=== PATIENT | male | born 1990 | race Caucasian/White ===

== ENCOUNTER 2017-12-05 21:59 | Emergency (ER) | payer MEDICAID, SELFPAY ==
[2017-12-05 22:00] VITALS: BP 140/85; PULSE 77; RESP 16; TEMP 36.7; O2SAT 97; BMI 32.3
[2017-12-05 22:22] VITALS: O2SAT 97
--- NOTE | 2017-12-05 22:23 | ED.DCSUM_ITS ---
- ER Visit Summary Date of Service: 12/05/17 Chief Complaint: Bad sore throat headache, aches and nonproductive cough History of Present Illness: The patient is a 27 M is a smoker 1 pack per day presents with flulike symptoms. Both of his children were diagnosed with influenza a. He does complain of headache without photophobia sips of his neck. Does complain of nasal congestion, postnasal drainage and bad sore throat. He states it hurts to swallow. He denies any chest pain or palpitations. He denies shortness of breath. He denies any GI or symptoms. He denies skin lesions. He denies swelling of his joints. Please read written note for complete detail Physical Examination: Vital signs are unremarkable and is afebrile. Head is atraumatic normocephalic. Pupils equal round reactive. TMs are pearly white with landmarks noted. Posterior pharynx without erythema noted without exudate. There is evidence of postnasal drainage. Trach is midline with no stridor. He does have bilateral anterior cervical lymphadenopathy. Heart is regular without murmur, gallop or rub. Lungs reveal wheezing throughout with increased x-ray phase. There is no egophony or increased vocal fremitus. There are no skin lesions noted. He is alert and oriented ?3 with a nonfocal neurologic exam. Test Results: None are indicated Emergency Department Course and Treatment: 6 puffs of albuterol metered-dose inhaler and dispense inhaler to be used every 2-4 hours while awake for the next 3 days. Treatment Plan: Stop smoking, Tylenol and/or ibuprofen for aches and fever and use of inhaler Disposition: Discharged home with appropriate home-going instructions Impression: 1. Influenza 2. Bronchospasm secondary #1 3. Tobacco use This note was generated with [employer] dictation software. It may contain incorrect words, spelling, and punctuation that were not noted in review of the chart prior to signing ED Disposition - Plan for ED Patient: Disposition: Home or Assisted Living Chief Complaint: Cold Sx Instructions: ED Flu Referrals: Care Physician,No Primary [Primary Care Provider] - Additional Instructions: It is in your best interest to stop smoking. 2 puffs of inhaler every 2-4 hours while awake for the next 3-5 days then every 4-6 hours as needed. If there is no improvement in 5-7 days follow-up with the physician you were assigned to by your [facility] carrier, [facility]
== END 2017-12-05 22:33 | disposition home or self-care (01) ==
PROVIDERS: Emergency Provider Emergency Medicine
DX: J11.1 Influenza due to unidentified influenza virus with other respiratory manifestations (principal); Z72.0 Tobacco use; J98.01 Acute bronchospasm
CPT/HCPCS: 99282

== ENCOUNTER 2017-12-09 12:46 | Emergency (ER) | payer MEDICAID, SELFPAY ==
[2017-12-09 12:48] VITALS: BP 132/74; PULSE 105; RESP 16; TEMP 37.1; O2SAT 96; BMI 31.8
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
[2017-12-09 15:47] VITALS: BP 137/74; PULSE 88; RESP 16; O2SAT 97
--- NOTE | 2017-12-09 15:50 | ED.RN ---
[facility] AT BEDSIDE TALKING WITH PT.
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
[2017-12-09 17:09] VITALS: BP 137/74; PULSE 88; RESP 16; O2SAT 97
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
== END 2017-12-09 17:26 ==
PROVIDERS: Emergency Provider Emergency Medicine
DX: S01.81XA Laceration without foreign body of other part of head, initial encounter (principal); S60.221A Contusion of right hand, initial encounter; Y04.2XXA Assault by strike against or bumped into by another person, initial encounter; Y93.9 Activity, unspecified; Y92.009 Unspecified place in unspecified non-institutional (private) residence as the place of occurrence of the external cause; Y99.9 Unspecified external cause status; J32.4 Chronic pansinusitis; Z72.0 Tobacco use
CPT/HCPCS: 12013; 70450; 70486; 73130; 99285

== ENCOUNTER 2017-12-10 09:56 | Emergency (ER) | payer MEDICAID, SELFPAY ==
[2017-12-10 09:56] VITALS: BP 154/95; PULSE 117; RESP 18; TEMP 36.2; O2SAT 99; BMI 31.7
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
[2017-12-10] MEDS: oxyCODONE 5 MG Tablet PO (11:15)
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
[2017-12-10 11:56] VITALS: BP 128/72; PULSE 80; RESP 17
== END 2017-12-10 12:01 | disposition home or self-care (01) ==
LOC: ED 10:27
PROVIDERS: Emergency Provider Emergency Medicine
DX: S00.83XD Contusion of other part of head, subsequent encounter (principal); S60.222D Contusion of left hand, subsequent encounter; Y09 Assault by unspecified means; Z72.0 Tobacco use
CPT/HCPCS: 73130; 99283

== ENCOUNTER 2018-10-23 19:23 | Emergency (ER) | payer MEDICAID, SELFPAY ==
[2018-10-23 19:23] VITALS: BP 144/77; PULSE 62; RESP 16; TEMP 36.4; O2SAT 99; BMI 29.8
[2018-10-23 21:00] VITALS: BP 136/70; PULSE 67; RESP 14; O2SAT 99
--- NOTE | 2018-10-23 22:18 | ED.DCSUM_ITS ---
History of Present Illness Chief Complaint: General Illness Informant: Patient Onset: Today - about 5-6 hrs prior to evaluation Context: Sudden Onset Quality: dizzy/spinning Location: head Current Severity: minimal Maximum Severity: Moderate Worsened by: unknown Relieved by: resting in waiting room in ER Associated Symptoms: felt disoriented (gone). recent diarrhea illness, resolved now. Narrative: Patient had a diarrheal illness with occasional mild cramping, no vomiting or fevers, for about 4 days this past week, he has been resolved for 2 days. He saw his doctor and was told he probably had Chancellor virus. Today he started having vertiginous symptoms which made him feel disoriented. He has had vertigo in the past as a side effect to a medication that he needs to take his stabilizer, which he is no longer on. He has been in the waiting room/ER for several hours prior to evaluation, he is appearing more pale than he is used to. He states since his diarrhea has been resolved he has been eating and drinking normally. He denies any recent head injury or earache, tinnitus, changes in his hearing. No focal neurologic symptoms appropriately. No seizures or vomiting. - Past Medical History (1) Bipolar disorder Status: Chronic Past Medical History - Allergies and Home Meds Allergies/Adverse Reactions: Allergies No Known Allergies Allergy (Verified 10/23/18 19:24) Primary Care Physician: Shavon Le PA [Primary Care Provider] - Smoking Status: Current every day smoker Review of Systems General: Reports: Malaise. Denies: Chills, Fever, Sweats Eyes: Denies: Visual changes - bilaterally, Diplopia ENT: Denies: Bilateral ear pain, Rhinorrhea, Sore throat Cardiovascular: Denies: Chest pain, Palpitations Respiratory: Denies: Dyspnea, Cough, Dyspnea on exertion Gastrointestinal: Denies: Abdominal pain, Nausea, Vomiting, Diarrhea, Melena, Hematochezia Genitourinary: Denies: Dysuria, Hematuria, Frequency Musculoskeletal: Denies: Neck pain, Back pain, Swelling, Extremity Pain Skin: Reports: - - Power. Denies: Rash, Abscess Neurological: Denies: Headache, Weakness, Numbness Psych: Reports: Anxiety - Resolved now. Denies: Depression Endocrine: Denies: Polyuria, Polydipsia Hematologic: Denies: Easy bruising, Easy bleeding Allergy: Denies: Swelling of the mouth, Swelling of the tongue Physical Exam Vital Signs/Narrative: Vital Signs Temp Pulse Resp BP Pulse Ox 10/23/18 21:00 67 14 136/70 H 99 10/23/18 19:23 97.6 F L 62 16 144/77 H 99 Inital Vital Signs reviewed: Yes General: Well nourished, Well developed Head: Normocephalic, Atraumatic Eyes: Perrl, EOMI ENT: Moist mucous membranes, No rhinorrhea, TM's clear Neck: Supple, Nontender Cardiovascular: Regular rate, Regular rhythm, No murmurs Respiratory: No distress, CTA bilaterally, Chest nontender Abdomen: Soft, Nontender, Nondistended, Normal bowel sounds Back: Nontender, Normal Inspection Extremities: Nontender, No edema Skin: Normal color, No rash Neurological: Alert, Oriented x3, Cranial nerves II-XII grossly intact, Normal Strength, Normal Sensation, Normal DTR - incl nml FTN and HTS bilat, - - Negative [place], although mild symptoms with maneuver to the left Psychological: Normal affect Diagnostic/Tx/Re-eval Laboratory Tests 10/23/18 10/23/18 Range/Units 21:02 21:02 WBC 7.8 (4.4-11.0) K/mm3 RBC 5.03 (4.6-6.2) M/mm3 Hgb 15.7 (13.0-16.5) g/dl Hct 45.4 (40-54) % MCV 90.3 (80-94) fL MCH 31.2 (27.0-32.0) pg MCHC 34.6 (32-36) g/gl RDW 13.4 (11.6-14.6) % RDW Differential 44.0 H (35.1-43.9) fl Plt Count 257 (150-450) K/mm3 MPV 9.8 (6.2-12.0) fl Immature Gran % (Auto) 0.000 (0.0-0.9) % Neut % (Auto) 62.6 (47-70) % Lymph % (Auto) 27.9 (19-41) % Morrow % (Auto) 8.2 (0-10) % Eos % (Auto) 0.9 (0-5) % Baso % (Auto) 0.4 (0-1) % Absolute Neuts (auto) 4.9 (2.0-7.7) X10^3/uL Absolute Lymphs (auto) 2.18 (0.83-4.51) X10^3/ul Total Counted Not Reportable Sodium 142 (136-145) mmol/L Potassium 4.0 (3.5-5.1) mmol/L Chloride 109 H (98-107) mmol/L Carbon Dioxide 28.0 (21.0-32.0) mmol/L Anion Gap 5 (5-15) BUN 10 (7-18) mg/dL Creatinine 0.98 (0.70-1.30) mg/dL Estim Creat Clear Calc 111.22 ml/min Est GFR (MDRD) Af Amer 117 (>60) mL/min Est GFR (MDRD) Non-Af 97 (>60) mL/min BUN/Creatinine Ratio 10.3 (10-20) RATIO Glucose 93 (74-106) mg/dL Calcium 8.6 (8.5-10.1) mg/dL - Medical Decision Making Labs are reassuring, and were performed because of his systemic symptoms. His disorientation resolved with his vertigo and I suspect it was directly related, and I do not think he requires a head scan. I think this is peripheral vertigo, probably reactive as a result of his recent viral infection. Supportive care advised. He was given meclizine here as well as a prescription and advised to follow-up if his symptoms last more than a week and he is comfortable with this plan. ED Disposition - Plan for ED Patient: Disposition: Home or Assisted Living Chief Complaint: General Illness Diagnosis: Peripheral vertigo, unspecified Instructions: ED Vertigo Unspecified Prescriptions: Meclizine HCl 25 mg PO Q8H PRN #16 tablet PRN Reason: Vertigo Referrals: Shavon Le PA [Primary Care Provider] - 1 Week if not improving
[2018-10-23 22:23] LABS: Absolute Lymphocyte Count 2.18 X10^3/ul (0.83-4.51); Absolute Neutrophil Count 4.9 X10^3/uL (2.0-7.7); Basophil# 0.03 X10^3/uL; Basophil% 0.4 % (0-1); Eosinophil# 0.07 X10^3/uL; Eosinophils% 0.9 % (0-5); Hematocrit 45.4 % (40-54); Hemoglobin 15.7 g/dl (13.0-16.5); Lymphocyte # 2.18 X10^3/ul (4.0); Lymphocyte % 27.9 % (19-41); Mean Corp Hgb Conc 34.6 g/gl (32-36); Mean Corpuscular Hgb 31.2 pg (27.0-32.0); Mean Corpuscular Volume 90.3 fL (80-94); Mean Platelet Vol. 9.8 fl (6.2-12.0); Monocyte# 0.64 X10^3/uL; Monocyte% 8.2 % (0-10); Neutrophil % 62.6 % (47-70); Platelet Count 257 K/mm3 (150-450); RBC Distribution Width CV 13.4 % (11.6-14.6); Red Blood Count 5.03 M/mm3 (4.6-6.2); White Blood Count 7.8 K/mm3 (4.4-11.0)
[2018-10-23 22:26] LABS: POSITIVE COUNT NO; POSITIVE DIFFERENTIAL NO; POSITIVE MORPHOLOGY NO
[2018-10-23 22:32] LABS: Anion Gap 5 (5-15); BUN 10 mg/dL (7-18); BUN/Creat Ratio 10.3 RATIO (10-20); Calcium,Total 8.6 mg/dL (8.5-10.1); Chloride 109 mmol/L (98-107); Creatinine, Serum 0.98 mg/dL (0.70-1.30); EST Glomerular Filtration Rate 97 mL/min (>60); Est Glom Filt Rate - Afr Amer 117 mL/min (>60); Estimated Creatinine Clearance 111.22 ml/min; Glucose 93 mg/dL (74-106); Sodium Level 142 mmol/L (136-145)
[2018-10-23] MEDS: Meclizine HCl 25 MG Tablet PO (22:33)
== END 2018-10-23 22:59 | disposition home or self-care (01) ==
PROVIDERS: Emergency Provider Emergency Medicine; Family Provider Physician Assistant; PCP Physician Assistant
DX: H81.399 Other peripheral vertigo, unspecified ear (principal); F17.200 Nicotine dependence, unspecified, uncomplicated; F31.9 Bipolar disorder, unspecified
CPT/HCPCS: 80048; 85025; 99284; A4216

== ENCOUNTER 2018-12-07 00:56 | Emergency (ER) | payer MEDICAID, SELFPAY ==
[2018-12-07 00:57] VITALS: BP 162/95; PULSE 71; RESP 18; TEMP 37; O2SAT 97; BMI 31.6
--- NOTE | 2018-12-07 02:59 | ED.DEP ---
ED Disposition - Plan for ED Patient: Instructions: ED Drug Abuse General Referrals: Shavon Le PA [Primary Care Provider] - EIGHTY,ONE [STAFF PHYSICIAN] -
[2018-12-07 03:10] VITALS: BP 150/78; PULSE 102
--- NOTE | 2018-12-07 03:10 | ED.RN ---
behavioral health services business card given. mom inquired about sedative to help pt sleep. spoke with dr. milner, he suggested benadryl that mom has at home, take 2. mom aware that pts hyperactivity will get better when meth gets out of his system.
--- NOTE | 2018-12-07 06:57 | ED.VISSUMM ---
- ER Visit Summary Date of Service: 12/07/18 Chief Complaint: Hallucinations History of Present Illness: The patient is a 28 M who presents with paranoia. Patient admits to methamphetamine use. His mother was concerned because he was delusional and he was hearing nets outside and thought that there are cameras in the house and he is being watched. He continued to have these delusions and paranoia of being watched by cameras on the way here to the emergency department. He denies any suicidal or homicidal ideation. Currently he is improved and essentially has no complaints. Physical Examination: Afebrile blood pressure 162/95 vitals otherwise normal Moist mucous membranes Heart regular rate and rhythm Lungs clear Abdomen soft Alert and oriented with no focal or lateralizing neurological deficits Normal affect normal behavior Test Results: Not indicated Emergency Department Course and Treatment: I believe the patient's paranoia is related to methamphetamine abuse. He is not suicidal he is not homicidal he does not appear to be a risk to himself at this time. He was counseled on drug cessation and discharged home. Treatment Plan: [] Disposition: Discharge Impression: Methamphetamine abuse This note was generated with [employer] dictation software. It may contain incorrect words, spelling, and punctuation that were not noted in review of the chart prior to signing ED Disposition - Plan for ED Patient: Disposition: Home or Assisted Living Instructions: ED Drug Abuse General Referrals: EIGHTY,ONE [STAFF PHYSICIAN] - Shavon Le PA [Primary Care Provider] -
== END 2018-12-07 03:11 | disposition home or self-care (01) ==
PROVIDERS: Emergency Provider Emergency Medicine; Family Provider Physician Assistant; PCP Physician Assistant
DX: F15.10 Other stimulant abuse, uncomplicated (principal); F31.9 Bipolar disorder, unspecified
CPT/HCPCS: 99282

== ENCOUNTER 2018-12-08 04:00 | Emergency (ER) | payer MEDICAID, SELFPAY ==
[2018-12-07 00:57] VITALS: BMI 31.6
[2018-12-08 04:02] VITALS: BP 133/88; PULSE 130; RESP 20; TEMP 36.7; O2SAT 97; BMI 29.2
--- NOTE | 2018-12-08 05:20 | EKG12_ITS ---
Test Reason : PALPITATIONS Blood Pressure : / mmHG Vent. Rate : 085 BPM Atrial Rate : 085 BPM P-R Int : 138 ms QRS Dur : 088 ms QT Int : 356 ms P-R-T Axes : 069 070 051 degrees QTc Int : 423 ms Normal sinus rhythm Nonspecific T wave abnormality Abnormal ECG Confirmed by SARAH BARAJAS, SOCO ([id number]), production editor MARA TIPTON ([id number]) on 12/13/2018 11:19:35 AM Referred By: ASIYA Confirmed By:SOCO SMITH MD
[2018-12-08] MEDS: LORazepam 1 MG Tablet 2 MG PO (05:56)
[2018-12-08 06:17] LABS: Absolute Neutrophil Count 5.8 X10^3/uL (2.0-7.7); Basophil# 0.05 X10^3/uL; Basophil% 0.6 % (0-1); Eosinophil# 0.09 X10^3/uL; Eosinophils% 1.1 % (0-5); Hematocrit 46.6 % (40-54); Hemoglobin 16.8 g/dl (13.0-16.5); Lymphocyte % 18.1 % (19-41); Mean Corp Hgb Conc 36.1 g/gl (32-36); Mean Corpuscular Hgb 31.8 pg (27.0-32.0); Mean Corpuscular Volume 88.3 fL (80-94); Monocyte# 0.82 X10^3/uL; Monocyte% 9.9 % (0-10); Neutrophil # 5.79 X10^3/uL (2.7-7.7); Neutrophil % 70.1 % (47-70); POSITIVE COUNT NO; POSITIVE DIFFERENTIAL NO; POSITIVE MORPHOLOGY NO; Platelet Count 223 K/mm3 (150-450); RBC Distribution Width CV 12.6 % (11.6-14.6); RBC Distribution Width SD 40.5 fl (35.1-43.9); Red Blood Count 5.28 M/mm3 (4.6-6.2); White Blood Count 8.3 K/mm3 (4.4-11.0)
[2018-12-08 06:30] LABS: BUN 14 mg/dL (7-18); Creatinine, Serum 0.96 mg/dL (0.70-1.30); EST Glomerular Filtration Rate 99 mL/min (>60); Estimated Creatinine Clearance 113.54 ml/min; Glucose 106 mg/dL (74-106)
[2018-12-08 06:31] LABS: ALB/GLOB Ratio 1.2 RATIO (0.9-2.4); AST(SGOT) 17 U/L (15-37); Alanine Aminotransfer ALT/SGPT 34 U/L (16-61); Albumin, Serum 4.2 g/dL (3.2-5.0); Alkaline Phosphatase 71 U/L (45-117); Anion Gap 9 (5-15); BUN/Creat Ratio 14.6 RATIO (10-20); Calcium,Total 9.6 mg/dL (8.5-10.1); Chloride 110 mmol/L (98-107); Est Glom Filt Rate - Afr Amer 119 mL/min (>60); Globulin 3.5 g/dL (2.2-4.2); Potassium 3.6 mmol/L (3.5-5.1); Protein, Total 7.7 g/dL (6.4-8.2); Sodium Level 144 mmol/L (136-145)
[2018-12-08 06:56] VITALS: BP 121/85; PULSE 112; O2SAT 96
--- NOTE | 2018-12-08 08:24 | ED.VISSUMM ---
- ER Visit Summary Date of Service: 12/08/18 Chief Complaint: Indent and skull History of Present Illness: The patient is a 28 M who presents with a concern for a dent in his skull. I recently saw him for methamphetamine abuse and paranoia and delusions. However at that point he did not seem to be a risk to himself and symptoms had improved prior to the time of my evaluation. He was discharged with his mother. Today he states about an hour or 2 before presentation he had an indent in his skull which then filled in his hands and face went numb. He complains of anxiety. He states he feels like only two of the 4 chambers in my heart are working. No nausea vomiting diarrhea. He states he does feel short of breath but this may be related to anxiety. No chest pain. Physical Examination: Initial heart rate 130 Moist mucous membranes Heart regular rhythm tachycardia Lungs clear Abdomen soft Alert Test Results: CBC, CMP normal. Alcohol negative. Emergency Department Course and Treatment: At the time of initial exam patient was calm and cooperative. I began medical clearance workup. My plan was to have crisis evaluate for possible admission. The patient became increasingly agitated and delusional and psychotic. I entered the room to speak to him about plan. He was agitated and aggressive. He was making statements such as this is Mannie's fall.Me if I knew Mannie. He states that he does not want to provide a urine specimen because he already knows what he used and he does not want family members to get his records and see that he was using drugs. Mother is concerned about his ability to care for himself. I do feel he will require psychiatric hospitalization given his worsening psychosis. Patient then eloped from his room. He did not walk by the front sight attacher. We are uncertain of where he went. We have contacted security and police. I have ordered intramuscular Geodon. I wrote a pink slip, placed patient on involuntary psychiatric hold. Patient has been signed out to the oncoming physician and police are here as well to try to locate the patient. Treatment Plan: [] Disposition: Transfer pending crisis evaluation Impression: Psychosis This note was generated with [employer] dictation software. It may contain incorrect words, spelling, and punctuation that were not noted in review of the chart prior to signing ED Disposition - Plan for ED Patient: Referrals: Shavon Le PA [Primary Care Provider] -
--- NOTE | 2018-12-08 08:28 | ED.DCSUM_ITS ---
- ER Visit Summary Date of Service: 12/08/18 Chief Complaint: Indent and skull History of Present Illness: The patient is a 28 M who presents with a concern for a dent in his skull. I recently saw him for methamphetamine abuse and paranoia and delusions. However at that point he did not seem to be a risk to himself and symptoms had improved prior to the time of my evaluation. He was discharged with his mother. Today he states about an hour or 2 before presentation he had an indent in his skull which then filled in his hands and face went numb. He complains of anxiety. He states he feels like only two of the 4 chambers in my heart are working. No nausea vomiting diarrhea. He states he does feel short of breath but this may be related to anxiety. No chest pain. Physical Examination: Initial heart rate 130 Moist mucous membranes Heart regular rhythm tachycardia Lungs clear Abdomen soft Alert Test Results: CBC, CMP normal. Alcohol negative. Emergency Department Course and Treatment: At the time of initial exam patient was calm and cooperative. I began medical clearance workup. My plan was to have crisis evaluate for possible admission. The patient became increasingly agitated and delusional and psychotic. I entered the room to speak to him about plan. He was agitated and aggressive. He was making statements such as this is Mannie's fall.Me if I knew Mannie. He states that he does not want to provide a urine specimen because he already knows what he used and he does not want family members to get his records and see that he was using drugs. Mother is concerned about his ability to care for himself. I do feel he will require psychiatric hospitalization given his worsening psychosis. Patient then eloped from his room. He did not walk by the desk interviewer. We are uncertain of where he went. We have contacted security and police. I have ordered intramuscular Geodon. I wrote a pink slip, placed patient on involuntary psychiatric hold. Patient has been signed out to the oncoming physician and police are here as well to try to locate the patient. Treatment Plan: [] Disposition: Transfer pending crisis evaluation Impression: Psychosis This note was generated with [employer] dictation software. It may contain incorrect words, spelling, and punctuation that were not noted in review of the chart prior to signing ED Disposition - Plan for ED Patient: Referrals: Shavon Le PA [Primary Care Provider] -
--- NOTE | 2018-12-08 08:39 | ED.RN ---
PT WAS BECOMING INCREASINGLY AGITATED AND PARANOID. RN SPOKE WITH DR. BRADEN, WHO INSTRUCTED RN THAT PT WILL BE PINK SLIPPED FOR HIS PARANOIA. DR. BRADEN WENT IN TO TALK WITH PT AROUND 0810, PT LEFT DEPARTMENT AT 0814, RN CALLED [place] [employer] DISPATCHER AT 0817 TO REPORT THAT THE PT LEFT DEPARTMENT. HOSPITAL SECURITY NOTIFIED, 0837: HOSPITAL PAGE FOR [facility]: MISSING ADULT
--- NOTE | 2018-12-08 09:23 | NURSING ---
CALLED THE [facility]SELING [facility]. JOSE AGARWAL IS DISCUSSING PATIENT WITH DR WEBSTER
[2018-12-08 10:08] LABS: Amphetamine Urine VISTA POSITIVE (<1000 ng/mL); Barbiturate Urine VISTA NEGATIVE (< 200 ng/mL); Benzodiazepine Urine VISTA NEGATIVE (< 200 ng/mL); Cocaine Urine VISTA NEGATIVE (< 300 ng/mL); Ecstacy Urine VISTA POSITIVE (< 500 ng/mL); Methadone Urine VISTA NEGATIVE (< 300 ng/mL); PCP Urine VISTA NEGATIVE (< 25 ng/mL); THC Urine VISTA POSITIVE (< 50 ng/mL); Vista UDS pH Range 6
[2018-12-08 11:10] VITALS: RESP 18
--- NOTE | 2018-12-08 11:17 | CM.ED ---
SOCIAL WORK NOTE UPDATED BY NURSE, PT TO BE EVALUATED BY CRISIS. PT WITH MANIC BEHAVIORS. DISPOSITION PENDING CRISIS EVALUATION. MARA WATKINS, INSIDE TESTER, LIBRARY CUSTOMER SERVICE CLERK.
--- NOTE | 2018-12-08 12:27 | ED.DEP ---
ED Disposition - Plan for ED Patient: Instructions: ED Drug Abuse General Prescriptions: hydrOXYzine pamoate capsule [Vistaril] 25 mg PO TID PRN PRN #15 cap PRN Reason: Anxiety Additional Instructions: follow up as instructed by crisis counselor
[2018-12-08] MEDS: hydrOXYzine PAM 25 MG Capsule PO (12:33)
== END 2018-12-08 12:36 | disposition home or self-care (01) ==
PROVIDERS: Emergency Medicine; Emergency Provider Emergency Medicine; Family Provider Physician Assistant; PCP Physician Assistant
DX: F29 Unspecified psychosis not due to a substance or known physiological condition (principal); F41.9 Anxiety disorder, unspecified; F15.90 Other stimulant use, unspecified, uncomplicated
CPT/HCPCS: 80053; 80307; 80320; 85025; 93005; 99282; G0480

== ENCOUNTER 2018-12-08 21:55 | Emergency (ER) | payer MEDICAID, SELFPAY ==
[2018-12-08 04:02] VITALS: BMI 29.2
[2018-12-08 21:56] VITALS: BP 141/71; PULSE 123; RESP 18; TEMP 36.6; O2SAT 95; BMI 29.2
--- NOTE | 2018-12-08 22:29 | ED.VISSUMM ---
- ER Visit Summary Date of Service: 12/08/18 Chief Complaint: Mental health evaluation History of Present Illness: The patient is a 28 M who presents with paranoid ideations that became worse tonight. Patient states that there are cameras in the cruise and bolts in his mother's house. Patient believes that he is being monitored while he is there. Patient denies any suicidal or homicidal ideations. Patient became agitated after getting into an argument with his mother. Patient was seen here this morning and was given a prescription for Vistaril which he did not fill. Physical Examination: Vital signs are stable. Patient is afebrile. Patient is in no acute distress. Oral mucosa is pink and moist. Neck is supple. Trachea is midline. There is no JVD noted. Heart was regular rate and rhythm. Lungs are clear and equal bilateral. Abdomen is soft. Bowel sounds are normal. There is no tenderness. There is no guarding noted. Skin is warm dry. Cranial nerves II through XII are intact. There are no focal motor or sensory deficits noted. The remaining physical exam is within normal limits. Test Results: Patient had labs drawn this morning at his prior visit which were normal except for the tox screen which was positive for amphetamines, methamphetamines, and cannabinoids. Emergency Department Course and Treatment: [facility] department filled out a pink slip. Crisis was contacted and will evaluate the patient. Given the patient is delusional some paranoid ideations, I feel the patient would benefit from inpatient treatment. I discussed the case with the crisis counselor. Crisis counselor will try to arrange for admission. Disposition: Likely transfer to psychiatric facility Impression: Paranoid ideations This note was generated with [employer] dictation software. It may contain incorrect words, spelling, and punctuation that were not noted in review of the chart prior to signing Capacity - Capacity Assessment Tool Can the patient make a choice & communicate that choice?: Yes Can the patient understand benefits, risks and alternatives?: Yes Can the patient make a logical, rational choice?: No Is there an impending, emergent risk to the patient?: No ED Disposition - Plan for ED Patient: Disposition: Psychiatric Hospital or Unit Diagnosis: Paranoid ideation Referrals: Shavon Le PA [Primary Care Provider] -
--- NOTE | 2018-12-08 22:30 | ED.RN ---
DR VANG REQUESTING [facility]SELING [facility] BE CONTACT FOR THE PT. COUNSELOR CONTACTED TO COME SPEAK WITH THE PT
--- NOTE | 2018-12-08 23:34 | ED.RN ---
KHUSHI FROM CRISIS AT THE BEDSIDE.
[2018-12-08 23:35] VITALS: RESP 16
[2018-12-09] VITALS (9 sets, daily range): BP systolic 128–132; BP diastolic 64–75; PULSE 87–99; RESP 14–20; TEMP 36.6; O2SAT 96–99
--- NOTE | 2018-12-09 00:10 | ED.RN ---
THIS NURSE IN THE ROOM WITH THE COUNSELOR AND DR PERKINS SPEAKING WITH THE PT ABOUT THE NEED TO BE TRANSFERRED TO ANOTHER FACILITY FOR A PSYCHIATRIC EVALUATION. PT ARGUMENTATIVE DURING CONVERSATION. PT DOES AGREE TO TAKE LISDON IM TO HELP HIM RELAX.
[2018-12-09] MEDS: Ziprasidone IM 20 MG/ML VIAL IM (00:19)
--- NOTE | 2018-12-09 00:34 | ED.RN ---
PT REQUESTING TO GO OUTSIDE TO SMOKE. PT INFORMED THIS IS A NON-SMOKING CAMPUS. PT OFFERED A NICOTINE PATCH
[2018-12-09 01:19] LABS: Amphetamine Urine VISTA POSITIVE (<1000 ng/mL); Barbiturate Urine VISTA NEGATIVE (< 200 ng/mL); Benzodiazepine Urine VISTA NEGATIVE (< 200 ng/mL); Cocaine Urine VISTA NEGATIVE (< 300 ng/mL); Ecstacy Urine VISTA POSITIVE (< 500 ng/mL); Methadone Urine VISTA NEGATIVE (< 300 ng/mL); PCP Urine VISTA NEGATIVE (< 25 ng/mL); THC Urine VISTA POSITIVE (< 50 ng/mL); Vista UDS pH Range 5
--- NOTE | 2018-12-09 01:49 | NURSING ---
ACCEPTED AT [facility] [phone] REPORT GOING TO INTENSIVE CARE UNIT
--- NOTE | 2018-12-09 03:38 | NURSING ---
JOHNATHAN FITZPATRICKIT DOES NOT DO NIGHT TRANSPORT TO [facility] CARE SAID TO CALL AFTER SHIFT CHANGE TO SET UP A RIDE
--- NOTE | 2018-12-09 04:53 | ED.RN ---
PT PRESENTLY SLEEPING,AROUSED BRIEFLY FOR VITALS AND THEN ROLLED OVER TO SLEEP.
== END 2018-12-09 09:51 ==
LOC: ED 23:40
PROVIDERS: Emergency Medicine; Emergency Provider Emergency Medicine; Family Provider Physician Assistant; PCP Physician Assistant
DX: F22 Delusional disorders (principal); F17.200 Nicotine dependence, unspecified, uncomplicated
CPT/HCPCS: 80053; 80307; 80320; 85025; 93005; 96372; 99282; 99284; G0480; J3486

== ENCOUNTER 2018-12-28 01:47 | Emergency (ER) | payer MEDICAID, SELFPAY ==
[2018-12-28 01:47] VITALS: BP 124/75; PULSE 93; RESP 16; TEMP 36.6; O2SAT 98; BMI 31.5
--- NOTE | 2018-12-28 01:58 | CT_ITS ---
STUDY: CT BRAIN WITHOUT CONTRAST REASON FOR EXAM: Male, 28 years old. Injury. Status post trip and fall, hitting head on a door. Laceration to middle of forehead. RADIATION DOSAGE (If Supplied By Facility): CTDIvol = ( 44.99 ) mGy, DLP = ( 812.98 ) mGycm TECHNIQUE: Transaxial CT imaging of the brain was performed without administration of intravenous contrast material. Individualized dose optimization techniques were used for this CT. COMPARISON: 12/09/2017 FINDINGS: Normal soft tissue structures. Normal calvarium. There is an old blowout fracture of the medial wall left orbit. Normal size ventricles and extra-axial spaces for the patient's age. Normal white matter tracts of the cerebral hemispheres. Normal basal ganglia and thalami. Normal brainstem. Normal cerebellum. There is no intracranial hemorrhage. There are no findings of an acute ischemic infarction. Normal visualized paranasal sinuses. CT/Brain/Head without Contrast IMPRESSION: Normal unenhanced CT scan of the brain. Electronically Signed: Jesse Best MD at 3:09 EST , Service support ,
--- NOTE | 2018-12-28 02:01 | ED.DCSUM_ITS ---
- ER Visit Summary Date of Service: 12/28/18 Chief Complaint: Facial laceration History of Present Illness: The patient is a 28 M mechanical fall 1 hour prior to arrival. Reports frequent alcohol his mother's house, he tripped hitting the wall. Denies loss of conscious. No headache, no nausea or vomiting. No visual changes. Tetanus 2007. Stitches in the past. No neck or back pain. Physical Examination: General: Alert and oriented ?3, no acute distress HEENT: Normocephalic, 3 cm horizontal laceration mid forehead, minimal bleeding, controlled with pressure. No hemotympanum. Moist mucosa membranes Neck: supple, nontender. Cardiovascular: Regular rate and rhythm, no murmurs Respiratory: Normal breath sounds, symmetric, no distress Abdomen: Soft, nontender, nondistended Extremities: Nontender, no edema, pulses intact ?4 Neuro: no focal neurological deficits. Test Results: CT head: No acute process. Emergency Department Course and Treatment: Patient no focal neurologic deficits. Due to alcohol use, CT head obtained shows no acute process. Laceration. Total of 7, 6-0 nylon sutures. Tetanus updated. Follow-up in 5 days for suture removal. Discharged with sober ride Treatment Plan: [] Disposition: Discharge Impression: 1. Closed head injury 2. Facial laceration 3. Alcohol use. 4. Tetanus update This note was generated with [employer] dictation software. It may contain incorrect words, spelling, and punctuation that were not noted in review of the chart prior to signing ED Disposition - Plan for ED Patient: Disposition: Home or Assisted Living Diagnosis: Closed head injury, Facial laceration, Alcohol use, Tetanus toxoid vaccination administered at current visit Instructions: ED Head Injury Closed, ED Laceration Facial Sutr Tape Referrals: Shavon Le PA [Primary Care Provider] - 5 Days for suture removal
[2018-12-28] MEDS: Diphth,Pertuss(Acell),Tet Vac 0.5 ML Vial IM (02:25)
[2018-12-28 03:27] VITALS: BP 116/80; PULSE 75; RESP 16; O2SAT 100
--- NOTE | 2018-12-28 03:28 | ED.RN ---
PT gave me permission to call mom for ride home. She stated she would be there but she lives a bit away.
--- NOTE | 2018-12-28 04:19 | ED.RN ---
Mom presents to bedside. PT wakes up and ambulates to lobby with a steady and independent gait. Mom would like a work slip for pt as he needs to be at work at 0500. Dr. Bah wrote for the pt to be off for today only.
== END 2018-12-28 04:20 | disposition home or self-care (01) ==
PROVIDERS: Emergency Provider Emergency Medicine; Family Provider Physician Assistant; PCP Physician Assistant
DX: S09.90XA Unspecified injury of head, initial encounter (principal); S01.81XA Laceration without foreign body of other part of head, initial encounter; W01.198A Fall on same level from slipping, tripping and stumbling with subsequent striking against other object, initial encounter; Y93.9 Activity, unspecified; Y92.009 Unspecified place in unspecified non-institutional (private) residence as the place of occurrence of the external cause; Y99.9 Unspecified external cause status; Z72.89 Other problems related to lifestyle; Z23 Encounter for immunization; Z72.0 Tobacco use; F31.9 Bipolar disorder, unspecified
CPT/HCPCS: 12013; 70450; 90471; 90715; 99285

== ENCOUNTER → 2020-04-12 11:52 | Outpatient (CLI) | payer SELFPAY | LOC: MTDU 11:52 | PROVIDERS: PCP Physician Assistant; Visit Provider Family Medicine | DX: Z20.828 Contact with and (suspected) exposure to other viral communicable diseases (principal) | CPT/HCPCS: 87635; G2023; U0003 ==

== ENCOUNTER 2023-11-07 02:36 | Emergency (ER) | payer SELFPAY ==
[2023-11-07 02:37] VITALS: BP 157/85; PULSE 111; RESP 20; TEMP 36.4; O2SAT 97; BMI 28.1
[2023-11-07] MEDS: 0.9% Normal Saline (1000mL) 1,000 ML 999 ML IV (03:02)
--- NOTE | 2023-11-07 03:21 | EDS_ITS ---
HPI HPI - Psych History of Present Illness Chief Complaint: Overdose Narrative Narrative: 33-year-old male brought in for evaluation of abnormal behavior. Patient admits to doing ecstasy tonight. He states he went in to [place] and hung out with some friends and he did not do ecstasy until he came home. He states that he called his mother and said he was not feeling right. Mother states he has a history of drug abuse and she believes he is doing methamphetamine again as she remembers the symptoms from previous. He does again admit to ecstasy use. Denies other drugs. Mother states he might of been awake for the last 2 days and he has a history of bipolar disorder and PTSD. Is been previously admitted for these symptoms in the past. She states has been put on medications but he does not stay on them. Patient is not suicidal or homicidal. Mother states that previously after he had these issues he was able to get cleaned up and he went to [place] and graduated from school by degree but then later felt back into the wrong crowd and started doing drugs. [facility] Medical History Bipolar disorder Manic behavior Home Medications hydroxyzine pamoate 25 mg capsule 25 mg PO TID PRN PRN Anxiety #15 caps 12/08/18 [Rx Last Taken Unknown] olanzapine 5 mg tablet (Zyprexa) 5 mg PO DAILY 12/28/18 [History Last Taken Unknown] Allergy/AdvReac Type Severity Reaction Status Date / Time No Known Allergies Allergy Verified 11/07/23 02:37 Social History Smoking Status: Current every day smoker tobacco type: cigarettes ROS ROS ED Constitutional Constitutional ED: Denies chills, fever(s) or sweats Eyes Eyes: Denies blurry vision or change in vision ENT ENT ED: Denies ear pain or sore throat Cardiovascular Cardiovascular: Denies chest pain, palpitations or racing heartbeat Respiratory/Chest Respiratory/Chest: Denies cough, dyspnea or sputum Gastrointestinal Gastrointestinal: Denies abdominal pain, constipation, diarrhea, nausea or vomiting Genitourinary Genitourinary ED: Denies dysuria, hematuria or urinary frequency Musculoskeletal Musculoskeletal: Denies arthralgias, myalgias or neck pain Integumentary Denies abscess, Abrasions or rash Neurologic Neurologic: Denies headache(s), paresthesias or weakness Psychiatric Psychiatric: Denies anxiety, depression, suicidal ideation or suicidal thoughts Endocrine Endocrinology: Denies polydipsia or polyuria EXAM Physical Exam Const Vital Signs: 11/07/23 02:37 11/07/23 06:53 Temperature 97.6 F L Temperature Source Temporal Pulse Rate 111 H 105 H Respiratory Rate 20 H 21 H Blood Pressure 157/85 H 126/79 H Blood Pressure Mean 109 94 Pulse Ox 97 98 Positive well nourished and unkempt Constitutional Narrative: Confused, shaky General Appearance ED: unkempt and irritable; Negative for pallor HEENT Reports moist mucous membranes Eyes PERRL and EOMs intact bilaterally Resp normal respiratory effort and clear to auscultation bilaterally Auscultation: Negative for rales, rhonchi or wheezes Cardio Rate: tachycardic Rhythm: regular rhythm GI non-tender and non-distended Neuro CN's II-XII intact bilaterally [place] Coma Scale: document GCS findings Spontaneous Obeys Commands Oriented 15 Sensorium / Orientation: alert Psych denies hallucinations, denies homicidal ideation and denies suicidal ideation Appearance: unkempt and bizarre Attitude: agitated Activity / Motor Behavior: psychomotor agitation, fidgetting, disorganized and restless Mood & Affect: irritable Thought Process: circumstantial, confused and illogical Thought Content: No suicidality and No homicidality Attention / Concentration: attention grossly impaired and concentration grossly impaired Memory / Cognition: memory grossly impaired and cognition grossly impaired Insight: poor Judgement: poor Skin General Skin Exam: Negative for jaundice or pallor MDM MDM MDM Narrative Medical decision making narrative: Presenting with family for delirium/psychosis. Patient has been doing drugs and admits to doing ecstasy however his mother suspects that he has been doing methamphetamine again. He denies alcohol abuse tonight. Differential includes, drug-induced psychosis, delirium, dehydration, anemia, electrolyte abnormaliti es. Rates pain up workup was obtained for medical clearance. Will talk to crisis about the patient as mother thinks he needs inpatient care secondary to psychosis. CBC shows normal white blood cell count at 8.0. Hemoglobin stable at 13.2. Platelets are normal at 252. LFTs are normal. Renal function electrolytes within normal limits. EtOH negative. Urine drug screen positive for amphetamines and MDMA which is consistent with the mom's history that he is likely taking methamphetamine and his admission to using ecstasy. Patient has been monitored here. Still awaiting crisis to come see him as he is medically cleared family is concerned that he needs placement. Crisis counselor came to see the patient and by this time he is pretty clear and lucid. He is alert and oriented x 3 and he does not believe he needs placement. He was given outpatient resources for drug addiction and for psychiatric follow-up. He does see ALMA Olmstead for his psychiatric medications and he states he does receive these. Patient reevaluated at 0 700 a.m. and we discussed the case with the forensic social worker in the room. Patient is going to try to abstain from drug use. He does not need to be admitted for placement. Again resources were given. Patient discharged into the care of his mother. Impression: 1. MDMA abuse 2. Methamphetamine abuse Lab Data Attestation: I reviewed the patient's lab results. Labs: Laboratory Results - last 24 hr 11/07/23 11/07/23 02:46 03:32 WBC 8.0 RBC 4.43 L Hgb 13.2 Hct 38.6 L MCV 87.1 MCH 29.8 MCHC 34.2 RDW Std Deviation 39.6 RDW Coeff of Chay 12.4 Plt Count 252 MPV 10.0 Immature Gran % (Auto) 0.300 Neut % (Auto) 78.2 H Lymph % (Auto) 12.8 L [place] % (Auto) 7.8 Eos % (Auto) 0.4 Baso % (Auto) 0.5 Absolute Neuts (auto) 6.2 Absolute Lymphs (auto) 1.02 Nucleated RBC % 0 Sodium 140 Potassium 3.5 Chloride 107 Carbon Dioxide 27.0 Anion Gap 6 BUN 12 Creatinine 0.98 Estim Creat Clear Calc 112.19 Est GFR (MDRD) Af Amer 113 Est GFR (MDRD) Non-Af 93 BUN/Creatinine Ratio 12.3 Glucose 98 Calcium 8.8 Total Bilirubin 0.70 AST 19 ALT 20 Alkaline Phosphatase 59 Total Protein 6.7 Albumin 3.7 Globulin 3.0 Albumin/Globulin Ratio 1.2 Urine Opiates Screen NEGATIVE Urine Methadone Screen NEGATIVE Ur Barbiturates Screen NEGATIVE Ur Phencyclidine Scrn NEGATIVE Ur Amphetamines Screen POSITIVE H MDMA (Ecstasy) Screen POSITIVE H U Benzodiazepines Scrn NEGATIVE Urine Cocaine Screen NEGATIVE U Cannabinoids Screen NEGATIVE Ur Drug Screen Comment Ethyl Alcohol < 3.0 Discharge Plan Triage Chief Complaint: Overdose ED Provider: Brennen Frias Dx/Rx/DC Orders Instructions: ED Drug Abuse Prescriptions: No Action hydroxyzine pamoate 25 MG capsule 25 mg PO TID PRN PRN (Reason: Anxiety) Qty: 15 0RF olanzapine [Zyprexa] 5 MG tablet 5 mg PO DAILY Primary Care Provider: Shavon Le Referrals: Shavon Le, PA [Primary Care Provider] - Activity Restrictions/Additional Instructions: You have been seen and evaluated by the crisis counselor today. They recommended outpatient follow-up for both drug addiction and for mental health. Make sure that you see your PA Truong Le for your psychiatric medications. The crisis counselor also gave you some resources on outpatient psychiatric treatment as well as resources outpatient which can help you with drug addiction. Disposition Disposition: Home, Self Care
--- OUTSIDE RECORDS SUMMARY | 2023-11-07 03:23 | XMS RPT_ITS | CCD ---
Author Name Unknown Address [address] [place] [address] Organization [facility] Care Team Providers Care Assistant Center Manager Name Role Phone ALEXIS GRIFFIN Admitting Unavailable ALEXIS GRIFFIN Attending Unavailable ALEXIS GRIFFIN Primary Care Unavailable Shavon LE Consulting Unavailable Shavon LE Referring Unavailable PROVIDER, UNKNOWN Consulting Unavailable Shavon Le PA-C Primary Care Provider Shavon Le PA-C Primary Care Provider [phone] Shavon Le Primary Care Provider [phone] JENELLE NELSON Referring Unavailable Shavon LE Primary Care Unavailable Shavon LE Primary Care Unavailable AYLEEN BROOKS Attending Unavailable Shavon LE Primary Care Unavailable DESTINY LIVINGSTON Attending Unavailable Shavon LE Primary Care Unavailable Shavon LE Primary Care Unavailable Shavon LE Referring Unavailable Shavon LE Attending Unavailable Shavon LE Primary Care Unavailable Shavon LE Referring Unavailable Shavon LE Primary Care Unavailable Shavon LE Referring Unavailable Shavon LE Primary Care Unavailable Allergies Allergy Classification Reported Allergen(s) Allergy Type Date of Onset Reaction(s) Facility (10 sources) Seasonal allergy; Translations: [SEASONAL ALLERGIES] Allergy to substance 3 Other: See Comments [facility] (1 source) FLUoxetine; Translations: [FLUOXETINE] Drug Allergy 3 [facility] Repository Medications Current Medications Medication Drug Class(es) Dates Sig (Normalized) Sig (Original) amoxicillin 500 mg oral capsule (3 sources) Penicillin-class Antibacterial Start: 10-09-2022 End: 10-19-2022 take 1 capsule by mouth twice daily amoxicillin (POLYMOX, AMOXIL) 500 mg capsule Take 1 capsule by mouth twice daily for 10 days. 20 capsule 0 10/09/2022 10/19/2022 Active Completed/Discontinued Medications Medication Drug Class(es) Dates Sig (Normalized) Sig (Original) ARIPiprazole 5 mg oral tablet (10 sources) Atypical Antipsychotic End: 07-08-2023 take 1 tablet by mouth once daily ARIPiprazole (ABILIFY) 5 mg tablet Take 5 mg by mouth once daily. 0 Active Problems Problem Classification Problem Date Documented Da te Episodic/Chronic Alcohol-related disorders (10 sources) Alcohol abuse; Translations: [Alcohol abuse, uncomplicated] Onset: 02-18-2019 02-18-2019 Chronic Anxiety disorders (10 sources) Generalized anxiety disorder; Translations: [Generalized anxiety disorder] Onset: 09-18-2021 09-18-2021 Chronic Genitourinary symptoms and ill-defined conditions (1 source) Other abnormal findings in urine; Translations: [Inappropriately low urine specific gravity] Onset: 10-19-2023 Episodic Immunizations and screening for infectious disease (1 source) Contact with and (suspected) exposure to other viral communicable diseases; Translations: [Exposure to SARS-associated coronavirus] 08-19-2023 Episodic Mood disorders (10 sources) Bipolar I disorder; Translations: [Bipolar disorder, unspecified] Onset: 04-12-2018 04-12-2018 Chronic Nausea and vomiting (1 source) Nausea; Translations: [Nausea] Episodic Other connective tissue disease (2 sources) Swelling of right lower limb; Translations: [Other specified soft tissue disorders] 09-18-2023 Episodic Other connective tissue disease (2 sources) Other specified soft tissue disorders; Translations: [Other specified soft tissue disorders] Onset: 09-18-2023 Episodic Other gastrointestinal disorders (1 source) Loose stool; Translations: [Other fecal abnormalities] Episodic Other upper respiratory infections (1 source) Chronic sinusitis; Translations: [Chronic sinusitis, unspecified] Chronic Other upper respiratory infections (11 sources) Streptococcal sore throat; Translations: [Streptococcal pharyngitis] Onset: 07-08-2023 Episodic Residual codes; unclassified (2 sources) Confusional state; Translations: [Disorientation, unspecified] 09-18-2023 Episodic Residual codes; unclassified (2 sources) Disorientation, unspecified; Translations: [Disorientation, unspecified] Onset: 09-18-2023 Episodic Substance-related disorders (10 sources) Methamphetamine abuse; Translations: [Other stimulant abuse, uncomplicated] Onset: 12-08-2018 12-08-2018 Chronic Results Test Name Value Interpretation Reference Range Facil ity Vital Signs Date Time Vital Sign Value Performing Clinician Faci lity 09-18-2023 22:38-0500 Diastolic blood pressure 86 mm[Hg] Destiny Livingston MD Work Phone: [facility] 09-18-2023 22:38-0500 Heart rate 94 /min Destiny Livingston MD Work Phone: [facility] 09-18-2023 22:38-0500 Respiratory rate 16 /min Destiyn Livingston MD Work Phone: [facility] 09-18-2023 22:38-0500 SaO2% (BldA) [Mass fraction] 98 % Destiny Livingston MD Work Phone: [facility] 09-18-2023 22:38-0500 Systolic blood pressure 131 mm[Hg] Destiny Livingston MD Work Phone: [facility] 09-18-2023 21:41-0500 Body height 175.3 cm Destiny Livingston MD Work Phone: [facility] 09-18-2023 21:41-0500 Body mass index (BMI) [Ratio] 29.53 kg/m2 Destiny Livingston MD Work Phone: [facility] 09-18-2023 21:41-0500 Body weight 90.72 kg Destiny Livingston MD Work Phone: [facility] 08-19-2023 11:06-0400 Body temperature 97.81 [degF] Bonnie Shaw APRN.CNP Work Phone: [facility] 08-19-2023 11:06-0400 Body weight 91.63 kg Bonnievelma Lopezer AUTOMATIC PACKER OPERATOR.FITNESS PLAN COORDINATOR Work Phone: [facility] 08-19-2023 11:06-0400 Diastolic blood pressure 62 mm[Hg] Bonnie Shaw AUTOMATIC PACKER OPERATOR.FITNESS PLAN COORDINATOR Work Phone: [facility] 08-19-2023 11:06-0400 Heart rate 73 /min Bonnievelma Lopezer AUTOMATIC PACKER OPERATOR.FITNESS PLAN COORDINATOR Work Phone: [facility] 08-19-2023 11:06-0400 Respiratory rate 16 /min Bonnie Shaw AUTOMATIC PACKER OPERATOR.FITNESS PLAN COORDINATOR Work Phone: [facility] 08-19-2023 11:06-0400 SaO2% (BldA) [Mass fraction] 97 % Bonnie Lopezer AUTOMATIC PACKER OPERATOR.FITNESS PLAN COORDINATOR Work Phone: [facility] 08-19-2023 11:06-0400 Systolic blood pressure 126 mm[Hg] Bonnie Lopezer AUTOMATIC PACKER OPERATOR.FITNESS PLAN COORDINATOR Work Phone: [facility] 07-08-2023 10:09-0400 Body height 177.8 cm Kellimarie Hay PA-C Work Phone: [facility] 07-08-2023 10:09-0400 Body mass index (BMI) [Ratio] 29.56 kg/m2 Kellimarie Hay PA-C Work Phone: [facility] 07-08-2023 10:09-0400 Body temperature 97.9 [degF] Kellimarie Hay PA-C Work Phone: [facility] 07-08-2023 10:09-0400 Body weight 93.44 kg Kellimarie Hay PA-C Work Phone: [facility] 07-08-2023 10:09-0400 Diastolic blood pressure 64 mm[Hg] Kellimarie Hay PA-C Work Phone: [facility] 07-08-2023 10:09-0400 Heart rate 90 /min Kellimarie Hay PA-C Work Phone: [facility] 07-08-2023 10:09-0400 SaO2% (BldA) [Mass fraction] 100 % Jesikaarie Hay PA-C Work Phone: [facility] 07-08-2023 10:09-0400 Systolic blood pressure 129 mm[Hg] Kelquiquee Hay PA-C Work Phone: [facility] 03-31-2023 16:07-0400 Body temperature 98.29 [degF] Krislyn Aberegg PA Work Phone: [facility] 03-31-2023 16:07-0400 Body weight 99.97 kg Krislyn Aberegg PA Work Phone: [facility] 03-31-2023 16:07-0400 Diastolic blood pressure 78 mm[Hg] Krislyn Aberegg PA Work Phone: [facility] 03-31-2023 16:07-0400 Heart rate 90 /min Krislyn Aberegg PA Work Phone: [facility] 03-31-2023 16:07-0400 Respiratory rate 21 /min Krislyn Aberegg PA Work Phone: [facility] 03-31-2023 16:07-0400 SaO2% (BldA) [Mass fraction] 98 % Krislyn Aberegg PA Work Phone: [facility] 03-31-2023 16:07-0400 Systolic blood pressure 112 mm[Hg] Krislyn Aberegg PA Work Phone: [facility] 11-06-2022 11:09-0500 Body temperature 99.19 [degF] Halina Denbow PA-C Work Phone: [facility] 11-06-2022 11:09-0500 Body weight 94.44 kg Halina Denbow PA-C Work Phone: [facility] 11-06-2022 11:09-0500 Diastolic blood pressure 68 mm[Hg] Halina Denbow PA-C Work Phone: [facility] 11-06-2022 11:09-0500 Heart rate 68 /min Halina Denbow PA-C Work Phone: [facility] 11-06-2022 11:09-0500 Respiratory rate 18 /min Halina Denbow PA-C Work Phone: [facility] 11-06-2022 11:09-0500 SaO2% (BldA) [Mass fraction] 98 % Halina Denbow PA-C Work Phone: [facility] 11-06-2022 11:09-0500 Systolic blood pressure 124 mm[Hg] Halina Denbow PA-C Work Phone: [facility] 10-09-2022 12:38-0500 Body temperature 99.1 [degF] Meg Mendez APRN.FITNESS PLAN COORDINATOR Work Phone: [facility] 10-09-2022 12:38-0500 Body weight 96.16 kg Meg Mendez APRN.FITNESS PLAN COORDINATOR Work Phone: [facility] 10-09-2022 12:38-0500 Diastolic blood pressure 70 mm[Hg] Meg Mendez APRN.FITNESS PLAN COORDINATOR Work Phone: [facility] 10-09-2022 12:38-0500 Heart rate 67 /min Meg Mendez APRN.FITNESS PLAN COORDINATOR Work Phone: [facility] 10-09-2022 12:38-0500 Respiratory rate 16 /min Meg Mendez APRN.FITNESS PLAN COORDINATOR Work Phone: [facility] 10-09-2022 12:38-0500 SaO2% (BldA) [Mass fraction] 96 % Meg Mendez APRN.FITNESS PLAN COORDINATOR Work Phone: [facility] 10-09-2022 12:38-0500 Systolic blood pressure 118 mm[Hg] Meg Mendez APRN.FITNESS PLAN COORDINATOR Work Phone: [facility] 01-30-2022 15:08-0400 Body temperature 98.71 [degF] Khris Desouza APRN.FITNESS PLAN COORDINATOR, DNP Work Phone: [facility] 01-30-2022 15:08-0400 Body weight 90.27 kg Khris Desouza APRN.GIO, DNP Work Phone: [facility] 01-30-2022 15:08-0400 Diastolic blood pressure 70 mm[Hg] Khris Desouza APRN.FITNESS PLAN COORDINATOR, DNP Work Phone: [facility] 01-30-2022 15:08-0400 Heart rate 69 /min Khris Desouza APRN.FITNESS PLAN COORDINATOR, DNP Work Phone: [facility] 01-30-2022 15:08-0400 Respiratory rate 14 /min Khris Desouza APRN.FITNESS PLAN COORDINATOR, DNP Work Phone: [facility] 01-30-2022 15:08-0400 SaO2% (BldA) [Mass fraction] 100 % Khris Desouza APRN.FITNESS PLAN COORDINATOR, DNP Work Phone: [facility] 01-30-2022 15:08-0400 Systolic blood pressure 108 mm[Hg] Khris Desouza APRN.FITNESS PLAN COORDINATOR, DNP Work Phone: [facility] Encounters Encounter Date Encounter Type Care Provider Facility Start: 10-19-2023 End: 10-20-2023 ambulatory [facility] Facility:[facility] Start: 10-19-2023 End: 10-19-2023 ambulatory [facility] Facility:[facility] Start: 09-18-2023 End: 09-19-2023 Emergency department patient visit [facility] Start: 09-18-2023 End: 09-18-2023 Emergency department patient visit Destiny Livingston MD Work Phone: [facility] Procedures Date Procedure Procedure Detail Performing Clinician Start: 09-18-2023 Basic metabolic pane l calcium total Jenelle Nelson APRN Work Phone: Start: 09-18-2023 Drug tst prsmv instr mnt chem analyzers pr date Jenelle Nelson APRN Work Phone: Start: 09-18-2023 Urinalysis complete panel - Urine Jenelle Nelson APRN Work Phone: Start: 09-18-2023 End: 09-18-2023 Urnls dip stick/tablet reagent auto microscopy Jenelle EscaleraShaila Nelson APRN Work Phone: Start: 09-18-2023 Ecg routine ecg w/le ast 12 lds trcg only w/o i&r Jenelle Ankita Nelson APRN Work Phone: Start: 03-31-2023 STREP A MOLECULAR (POC) Cherelle MARQUEZ Work Phone: Start: 11-06-2022 STREP A MOLECULAR (POC) Halina Ferguson PA-C Work Phone: Start: 10-09-2022 STREP A MOLECULAR (POC) Meg Mendez APRN.GIO Work Phone: Start: 01-30-2022 STREP A MOLECULAR (POC) Khris Desouza APRN.GIO, DNP Work Phone: Start: 07-09-2020 Adult depression screening assessment Khris Desouza APRN.GIO, DNP Work Phone: Plan of Treatment Date Care Activity Detail Author Start: 2049 RSV Immunization aged 60 or older (1 - 1-dose 60+ series) RSV Immunization aged 60 or older (1 - 1-dose 60+ series) [facility] Start: 2039 Zoster Vaccines (1 of 2) Zoster Vaccines (1 of 2) [facility] Start: 12-28-2028 DTaP/Tdap/Td Vaccines (2 - Td or Tdap) DTaP/Tdap/Td Vaccines (2 - Td or Tdap) [facility] Start: 12-28-2028 Urine microalbumin profile [facility] Start: 06-25-2023 Influenza vaccination [facility] Start: 03-31-2023 End: 04-14-2023 Influenza virus A and B RNA and SARS-CoV-2 (COVID-19) N gene panel - Respiratory specimen by LAVERNE with probe detection COVID WITH FLUA+B, ROUTINE Microbiology Routine URI, acute Expected: 03/31/2023, Expires: 04/14/2023 [facility] Work Phone: Immunizations Immunization Date Immunization Notes Care Provider Kiet blakejon 12-28-2018 tetanus toxoid, redu ricardo diphtheria toxoid, and acellular pertussis vaccine, adsorbed Khris Desouza APRN.FITNESS PLAN COORDINATOR, DNP Work Phone: [facility] Work Phone: Payers Date Payer Category Payer Unknown [employer] BLUE C[employer] PPO OOS [id number] 2022-Present [phone] [address] [place] [address] PPO [id number] 2022 Unknown [id number] 2022 Unknown [employer] BLUE ACCE SS PPO [id number] 2022-Present [phone] [address] [place] [id number] PPO [id number] 1989 Unknown [id number] Unknown [id number] Social History Date Type Detail Facility Start: 05-19-2019 End: 10-09-2022 Tobacco smoking status NHIS Ex-smoker [facility] Start: 05-19-2019 End: 10-09-2022 Tobacco use and exposure Smokeless tobacco non-user [facility] Start: 01-30-2022 End: 03-31-2023 Alcohol intake Current non-drinker of alcohol (finding) [facility] Start: 07-09-2020 End: 02-09-2022 History SDOH Alcohol Frequency 1 [facility] Start: 07-28-2018 History SDOH Alcohol Comment heavy on weekends in past [facility] Start: 07-09-2020 End: 02-09-2022 History SDOH Social Connections Phone 4 [facility] Start: 07-09-2020 End: 02-09-2022 History SDOH Social Connections Get Together 3 [facility] Start: 07-09-2020 End: 02-09-2022 History SDOH Social Connections Roman Catholic 2 [facility] Start: 07-09-2020 History SDOH Social Connections Living 7 [facility] Start: 07-09-2020 End: 02-09-2022 History SDOH Physical Activity DPW 5 [facility] Start: 07-09-2020 History SDOH Physical Activity MPS 6 [facility] Start: 07-09-2020 Education 14 [facility] Start: 08-25-2019 End: 10-09-2022 Tobacco Comment vaping [facility] Start: 1990 Sex Assigned At Not on file [facility] Start: 01-20-2022 End: 07-08-2023 Exposure to SARS-CoV-2 (event) Not sure [facility] Work Phone: Start: 02-09-2022 History SDOH Social Connections Living 8 [facility] Start: 02-09-2022 History SDOH Physical Activity MPS 9 [facility] Start: 01-30-2022 End: 02-09-2022 Exposure to SARS-CoV-2 (event) Unable to assess [facility] Work Phone: History of tobacco use Current smoker [facility] Tobacco smoking stat [facility] Tobacco smoking consumption unknown [facility] Start: 02-09-2022 End: 09-18-2023 Gender identity Not on file [facility] Start: 02-09-2022 End: 09-18-2023 History of Social function [facility] Do you belong to any clubs or organizations such as baptist groups, unions, fraternal or athletic groups, or school groups? Yes [facility] Are you now , , , , never or living with a partner? Living with partner [facility] How often to you hav e a drink containing alcohol? Never [facility] How many standard dr inks containing alcohol do you have on a typical day? 1 or 2 [facility] How hard is it for y ou to pay for the very basics like food, housing, medical care, and heating Not hard at all [facility] Do you feel stress - tense, restless, nervous, or anxious, or unable to sleep at night because your mind is troubled all the time - these days [OSQ] Rather much [facility] (I/We) worried wherobin er (my/our) food would run out before (I/we) got money to buy more. Never true [facility] In the past 12 month s, was there a time when you were not able to pay the mortgage or rent on time? No [facility] Start: 09-18-2023 Tobacco smoking status NHIS Smokes tobacco daily [facility] Clinical Notes 01-30-2022 to 10-19-2023 Discharge Christopher Santiago RN - 09/18/2023 5:51 PM Imelda Santigao RN - 09/18/2023 5:51 PM ESTED Attestation Note - Destiny Livingston MD - 09/18/2023 5:51 PM ESTPatient Instructions Note Date & Type Note Facility 10-19-2023 Note HNO ID: [id number] Author: Shavon Le PA-C Service: ? Author Type: Physician Auto Transmission Technician Type: Progress Notes Filed: 10/19/2023 4:38 PM Note Text: 33 year old male with c/o anxiety/ depression, 10/20/2021 last visit with me. Sleeping longer than normal, feeling down. from [place] 2.5 years (her decision but somewhat mutual), moved house to [place], shared parenting ex-partner stopped visitation, made up allegations with [facility]. Hard time staying focused. PTSD from separation from other children. Sleep affected by intermittent bouts with depression. 14-16 hours if nothing to do. Usually 4-5 hour and up. Working in oil bay technician. Uses marijuana occasionally. ETOH: rare No other drugs No suicidal fantasies of self injury or suicide. No cutting (from past). Looking forward to travel and doctorate in engineering. Prior medications for depression/ anxiety, bipolar 1: Aripiprazole, Bupropion, Carbamezapine Reviewed 09/18/2023 [place] ED record Labs WNL except WBC 11.3, K 3.4, urine SG 1.002 Otherwise CBC, chems. HIV1,2 , UA WNL. HISTORIES FAMILY HISTORY Problem Relation Age of Onset Rheumatologic disease Mother lupus Psychiatry Mother anxiety Psychiatry Brother ADHD, ODD, manic bipolar Kidney Disease Maternal Grandmother Diabetes Maternal Grandmother other (unknown) Maternal Grandfather Depression Paternal Grandmother Heart disease Paternal Grandmother CHF Depression Maternal Uncle PAST MEDICAL HISTORY Diagnosis Date Ankle fracture left Bipolar 1 disorder ([facility]) 04/06/2018 Depression dx in teens PAST SURGICAL HISTORY Procedure Laterality Date NONE Social History Tobacco Use Smoking status: Former Smokeless tobacco: Never Tobacco comments: vaping Substance Use Topics Alcohol use: No Comment: heavy on weekends in past ACTIVE PROBLEM LIST Bipolar 1 Disorder ([facility]) Methamphetamine Use ([facility]) Alcohol Abuse Carl (Generalized Anxiety Disorder) Current Outpatient Medications Medication Sig Dispense Refill promethazine (PHENERGAN) 12.5 mg tablet Take 1 tablet by mouth every 6 hours as needed. (Patient not taking: Reported on 03/31/2023) 30 tablet 0 ARIPiprazole (ABILIFY) 5 mg tablet Take 5 mg by mouth once daily. (Patient not taking: Reported on 10/09/2022) bupropion HCl (WELLBUTRIN ORAL) Take 150 mg by mouth. (Patient not taking: Reported on 10/09/2022) lidocaine viscous (LIDOCAINE VISCOUS) 2 % solution Take 5-10 mL by mouth as needed. (Patient not taking: Reported on 11/06/2022) 100 mL 1 No current facility-administered medications for this visit. Hepatitis B Vaccine(1 of 3 - 3-dose series) Never done Covid-19 Vaccine(1) Never done Pneumococcal Vaccine(1 of 2 - PCV) Never done Depression Assessment Never done Influenza Vaccine(1) Never done EXAM: BP 130/64 Pulse 80 Resp 16 Ht 177.8 cm (5' 10 ) Wt 90.7 kg (200 lb) BMI 28.70 kg/m? Pleasant well appearing adult man in no acute distress. Alert and oriented all spheres. Normal affect and cognition. Speech normal. No deficits to learning or comprehension. Skin warm, dry, pink to lips and nailbeds. Normal turgor. Respirations regular and unlabored. HEENT: NCAT. No scleral icterus or conjunctival injection. TM's clear. Nose and oropharynx free from injection or lesion. Oral membranes moist and pink. No cervical lymph nodes. Thyroid non-tender, no masses, or enlargement. Carotids pulses 2+/4+ without bruits. No JVD with HOB at 30 degrees. Chest is normal shape. Lungs are clear to all whiteside with good air exchange through out. HRRR without murmur or gallop. No lifts, heaves, or rubs. Extrem: no clubbing or cyanosis. Edema: none. Extremities are warm and pink with prompt capillary refill. ASSESSMENT/PLAN: 1. CARL (generalized anxiety disorder) - ICD9: 300.02, ICD10: F41.1 (primary diagnosis) Discussed past hx, BPD2 with patient identifying hypomania . Trial desvenlaxaine 25mg daily with cautions for activation of BPD risks Educated on new medication administration, warnings and cautions, common side effects, anticipated duration or therapy, and instructions on cessation management to avoid risks if stops medication. Patient choice was discussed in shared decision making. F/u 4-6 weeks 2. Inappropriately low urine specific gravity - ICD9: 791.9, ICD10: R82.998 recheck - URINALYSIS, WITH MICROSCOPIC M Cornel Le PA-C [facility] 09-18-2023 Hospital Discharg e instructions Destiny Livingston MD - 09/18/2023 10:09 PM EST You were seen in the Emergency Department for numbness/tingling, leg swelling and confusion. Your workup here showed that you have no dangerous cause of your symptoms. You should avoid using drugs. Drink plenty of fluids and get plenty of rest. Take Tylenol as needed for pain. Follow the attached instructions to get the ultrasound of the right leg to look for a blood clot in the leg. Make a follow-up appointment with your primary care provider soon as possible. Return to the Emergency Department if you have: - Severe pain - High fever (102F) - Any other symptoms that concern you Please sign up for MyChart and review all results from your visit today. Please follow up with your primary care provider with any questions or concerns about your results today. Thank you for choosing [facility] for your care. Sincerely, Destiny Livingston MD documented in this encounter [facility] 09-18-2023 Emergency department Note Bed: 35 Expected date: Expected time: Means of arrival: Comments: triage Bambi Santiago RN [id number] [facility] 09-18-2023 Emergency department Note Bed: 35 Expected date: Expected time: Means of arrival: Comments: triage Bambi Santiago RN [id number] documented in this encounter [facility] 09-18-2023 Miscellaneous Notes Emergency Department Encounter [facility] EMERGENCY DEPT Patient: Avelino Monaco : 1990 Date of Evaluation: 09/18/2023 ED Supervising Physician: Destiny Livingston MD I independently examined and evaluated Avelino Monaco. This will serve as my Supervisory note and shared attestation. I did perform a substantive portion of the visit including all aspects of the Medical Decision Making. I wore appropriate PPE for the entirety of this encounter. In brief, Avelino Monaco is a 33 y.o. that presents to the emergency department with right greater than left leg swelling, bilateral leg numbness and tingling at the top of his head and sores in his mouth. Focused exam: Constitutional: No acute distress HEENT:Head: Atraumatic/normocephalic Eyes: Conjunctivae normal. PERRLA, EOMI ENT: Mucous membranes moist. Normal oropharynx with no significant source besides some cracking of the lips. Neck: Normal ROM, supple CV: RRR RESP: CTAB, good respiratory effort, no increased wob GI: Abdomen soft, non-tender, non-distended, +BS, no guarding or rebound tenderness MSK: Normal bulk and tone, no gross deformity EXTR: Warm and well perfused, right lower extremity edema SKIN: No rash/bruising/erythema PSYCH: Appropriate affect, cooperative behavior NEURO: Alert and oriented x 3, face symmetric, no slurred speech, CN2-12 intact, motor and sensory intact and equal bilaterally. No pronator drift. Cerebellar (finger-nose) normal. Brief ED course/MDM: Patient appears nontoxic and vital signs are normal except for mild tachycardia which improved with IV fluids. Patient tested positive for amphetamines which may be involved in the patient's symptoms. EKG with sinus tachycardia. CBC is overall normal with just minimal leukocytosis of 11.3. BMP is normal. LFTs are normal. Lipase is normal. Nonreactive for HIV. Urinalysis is overall unremarkable except for ketones which are likely secondary to dehydration. Placed an outpatient ultrasound order for DVT ultrasound. Patient discharged home in good condition. All diagnostic, treatment, and disposition decisions were made by myself in conjunction with the MILADYS. For all further details of the patient's emergency department visit, please see their documentation. (Comment: Please note this report has been produced using speech recognition software and may contain errors related to that system including errors in grammar, punctuation, and spelling, as well as words and phrases that may be inappropriate. If there are any questions or concerns please feel free to contact the dictating provider for clarification.) Destiny Livingston MD [facility] Destiny Livingston MD 09/19/23 0122 documented in this encounter [facility] 09-18-2023 Note Formatting of this n ote might be different from the original. Emergency Department Encounter [facility] EMERGENCY DEPT Patient: Avelino Monaco : 1990 Date of Evaluation: 09/18/2023 ED Supervising Physician: Destiny Livingston MD I independently examined and evaluated Avelino Monaco. This will serve as my Supervisory note and shared attestation. I did perform a substantive portion of the visit including all aspects of the Medical Decision Making. I wore appropriate PPE for the entirety of this encounter. In brief, Avelino Monaco is a 33 y.o. that presents to the emergency department with right greater than left leg swelling, bilateral leg numbness and tingling at the top of his head and sores in his mouth. Focused exam: Constitutional: No acute distress HEENT:Head: Atraumatic/normocephalic Eyes: Conjunctivae normal. PERRLA, EOMI ENT: Mucous membranes moist. Normal oropharynx with no significant source besides some cracking of the lips. Neck: Normal ROM, supple CV: RRR RESP: CTAB, good respiratory effort, no increased wob GI: Abdomen soft, non-tender, non-distended, +BS, no guarding or rebound tenderness MSK: Normal bulk and tone, no gross deformity EXTR: Warm and well perfused, right lower extremity edema SKIN: No rash/bruising/erythema PSYCH: Appropriate affect, cooperative behavior NEURO: Alert and oriented x 3, face symmetric, no slurred speech, CN2-12 intact, motor and sensory intact and equal bilaterally. No pronator drift. Cerebellar (finger-nose) normal. Brief ED course/MDM: Patient appears nontoxic and vital signs are normal except for mild tachycardia which improved with IV fluids. Patient tested positive for amphetamines which may be involved in the patient's symptoms. EKG with sinus tachycardia. CBC is overall normal with just minimal leukocytosis of 11.3. BMP is normal. LFTs are normal. Lipase is normal. Nonreactive for HIV. Urinalysis is overall unremarkable except for ketones which are likely secondary to dehydration. Placed an outpatient ultrasound order for DVT ultrasound. Patient discharged home in good condition. All diagnostic, treatment, and disposition decisions were made by myself in conjunction with the MILADYS. For all further details of the patient's emergency department visit, please see their documentation. (Comment: Please note this report has been produced using speech recognition software and may contain errors related to that system including errors in grammar, punctuation, and spelling, as well as words and phrases that may be inappropriate. If there are any questions or concerns please feel free to contact the dictating provider for clarification.) Destiny Livingston MD Acute Care [facility] Destiny Livingston MD 09/19/23 0122 [facility] 09-18-2023 Note Formatting of this n ote might be different from the original. Emergency Department Encounter [facility] EMERGENCY DEPT Patient: Avelino Monaco : 1990 Date of Evaluation: 09/18/2023 ED Supervising Physician: Destiny Livingston MD I independently examined and evaluated Avelino Monaco. This will serve as my Supervisory note and shared attestation. I did perform a substantive portion of the visit including all aspects of the Medical Decision Making. I wore appropriate PPE for the entirety of this encounter. In brief, Avelino Monaco is a 33 y.o. that presents to the emergency department with right greater than left leg swelling, bilateral leg numbness and tingling at the top of his head and sores in his mouth. Focused exam: Constitutional: No acute distress HEENT:Head: Atraumatic/normocephalic Eyes: Conjunctivae normal. PERRLA, EOMI ENT: Mucous membranes moist. Normal oropharynx with no significant source besides some cracking of the lips. Neck: Normal ROM, supple CV: RRR RESP: CTAB, good respiratory effort, no increased wob GI: Abdomen soft, non-tender, non-distended, +BS, no guarding or rebound tenderness MSK: Normal bulk and tone, no gross deformity EXTR: Warm and well perfused, right lower extremity edema SKIN: No rash/bruising/erythema PSYCH: Appropriate affect, cooperative behavior NEURO: Alert and oriented x 3, face symmetric, no slurred speech, CN2-12 intact, motor and sensory intact and equal bilaterally. No pronator drift. Cerebellar (finger-nose) normal. Brief ED course/MDM: Patient appears nontoxic and vital signs are normal except for mild tachycardia which improved with IV fluids. Patient tested positive for amphetamines which may be involved in the patient's symptoms. EKG with sinus tachycardia. CBC is overall normal with just minimal leukocytosis of 11.3. BMP is normal. LFTs are normal. Lipase is normal. Nonreactive for HIV. Urinalysis is overall unremarkable except for ketones which are likely secondary to dehydration. Placed an outpatient ultrasound order for DVT ultrasound. Patient discharged home in good condition. All diagnostic, treatment, and disposition decisions were made by myself in conjunction with the MILADYS. For all further details of the patient's emergency department visit, please see their documentation. (Comment: Please note this report has been produced using speech recognition software and may contain errors related to that system including errors in grammar, punctuation, and spelling, as well as words and phrases that may be inappropriate. If there are any questions or concerns please feel free to contact the dictating provider for clarification.) Destiny Livingston MD [facility] Destiny Livingston MD 09/19/23 0122 [facility] 08-19-2023 Note HNO ID: [id number] Author: Bonnie Shaw APRN.FITNESS PLAN COORDINATOR Service: ? Author Type: Nurse Practitioner Type: Progress Notes Filed: 08/19/2023 12:45 PM Note Text: SUBJECTIVE: Avelino Monaco is a 33 year old male. Who presents today with sore throat headache fatigue and cough for a week. He had a fever of 101. He has taken motrin and tylenol for his symptoms. He has not had an exposure to anyone who is sick. He has missed a week of work due to not feeling good. He would like covid testing today. HPI PAST MEDICAL HISTORY Diagnosis Date Ankle fracture left Bipolar 1 disorder (HCC) 04/06/2018 Depression dx in teens FAMILY HISTORY Problem Relation Age of Onset Rheumatologic disease Mother lupus Psychiatry Mother anxiety Psychiatry Brother ADHD, ODD, manic bipolar Kidney Disease Maternal Grandmother Diabetes Maternal Grandmother other (unknown) Maternal Grandfather Depression Paternal Grandmother Heart disease Paternal Grandmother CHF Depression Maternal Uncle Social History Tobacco Use Smoking status: Former Smokeless tobacco: Never Tobacco comments: vaping Substance Use Topics Alcohol use: No Comment: heavy on weekends in past ALLERGIES Allergen Reactions Seasonal Allergies Other: See Comments Spring allergies, nasal congestion Current Outpatient Medications Medication Sig Dispense Refill promethazine (PHENERGAN) 12.5 mg tablet Take 1 tablet by mouth every 6 hours as needed. (Patient not taking: Reported on 03/31/2023) 30 tablet 0 ARIPiprazole (ABILIFY) 5 mg tablet Take 5 mg by mouth once daily. (Patient not taking: Reported on 10/09/2022) bupropion HCl (WELLBUTRIN ORAL) Take 150 mg by mouth. (Patient not taking: Reported on 10/09/2022) lidocaine viscous (LIDOCAINE VISCOUS) 2 % solution Take 5-10 mL by mouth as needed. (Patient not taking: Reported on 11/06/2022) 100 mL 1 No current facility-administered medications for this visit. OBJECTIVE: BP 126/62 Pulse 73 Temp 36.6 ?C (97.8 ?F) Resp 16 Wt 91.6 kg (202 lb) SpO2 97% BMI 29.92 kg/m? ROS: All systems reviewed and are otherwise negative Constitutional: Well developed, well nourished, AANDO X3. ENT: Head is atraumatic, airway patent, mucosal membranes moist pink no exudate no TRAINING DEVELOPMENT SPECIALIST Neck: full ROM, no meningeal signs Cardiac: heart tones regular rate and rhythm Respiratory: lung CTA : no CVA tenderness MS: moves all extremities, no deformities noted Neuro: GCS 15 no focal deficits Skin: warm and dry with out rash, lesion or ecchymosis Psych: alert appropriate, speech clear Diagnostic testing: COVID/ Influenza A and B testing performed and results will be complete in the next 24-72 hours. The patient will be notified of the results in My Chart. MDM: Patient presented to the [facility] today for COVID and Influenza testing. Vital signs were evaluated and found to be within normal limits. Avelino Monaco was in no acute distress. We discussed the COVID results will be back in the next 1-2 days. In accordance with the CDC guidelines, Avelino Monaco was instructed to quarantine, if indicated, based on symptoms and exposure. We have discussed over the counter medications to use for their symptoms. He was given a work note for today. They will follow-up with their family doctor in the next 2-3 days. If symptoms worsen they will go straight to the emergency department for further evaluation and treatment. They voiced understanding of the plan of care and are in agreement. ASSESSMENT/PLAN: 1. Exposure to SARS-associated coronavirus - ICD9: V01.82, ICD10: Z20.828 - COVID AND INFLUENZA A/B AND RSV NAAT, ROUTINE - COVID NAAT, UPPER RESPIRATORY, ROUTINE - ROUTINE FLU A/B + RSV Bonnie Shaw APRN.[facility] 08-19-2023 History of Beny rodriguez illness Narrative SUBJECTIVE: Avelino Monaco is a 33 year old male. Who presents today with sore throat headache fatigue and cough for a week. He had a fever of 101. He has taken motrin and tylenol for his symptoms. He has not had an exposure to anyone who is sick. He has missed a week of work due to not feeling good. He would like covid testing today. HPI PAST MEDICAL HISTORY Diagnosis Date Ankle fracture left Bipolar 1 disorder (HCC) 04/06/2018 Depression dx in teens FAMILY HISTORY Problem Relation Age of Onset Rheumatologic disease Mother lupus Psychiatry Mother anxiety Psychiatry Brother ADHD, ODD, manic bipolar Kidney Disease Maternal Grandmother Diabetes Maternal Grandmother other (unknown) Maternal Grandfather Depression Paternal Grandmother Heart disease Paternal Grandmother CHF Depression Maternal Uncle Social History Tobacco Use Smoking status: Former Smokeless tobacco: Never Tobacco comments: vaping Substance Use Topics Alcohol use: No Comment: heavy on weekends in past ALLERGIES Allergen Reactions Seasonal Allergies Other: See Comments Spring allergies, nasal congestion Current Outpatient Medications Medication Sig Dispense Refill promethazine (PHENERGAN) 12.5 mg tablet Take 1 tablet by mouth every 6 hours as needed. (Patient not taking: Reported on 03/31/2023) 30 tablet 0 ARIPiprazole (ABILIFY) 5 mg tablet Take 5 mg by mouth once daily. (Patient not taking: Reported on 10/09/2022) bupropion HCl (WELLBUTRIN ORAL) Take 150 mg by mouth. (Patient not taking: Reported on 10/09/2022) lidocaine viscous (LIDOCAINE VISCOUS) 2 % solution Take 5-10 mL by mouth as needed. (Patient not taking: Reported on 11/06/2022) 100 mL 1 No current facility-administered medications for this visit. OBJECTIVE: BP 126/62 Pulse 73 Temp 36.6 C (97.8 F) Resp 16 Wt 91.6 kg (202 lb) SpO2 97% BMI 29.92 kg/m ROS: All systems reviewed and are otherwise negative Constitutional: Well developed, well nourished, A&O X3. ENT: Head is atraumatic, airway patent, mucosal membranes moist pink no exudate no TRAINING DEVELOPMENT SPECIALIST Neck: full ROM, no meningeal signs Cardiac: heart tones regular rate and rhythm Respiratory: lung CTA : no CVA tenderness MS: moves all extremities, no deformities noted Neuro: GCS 15 no focal deficits Skin: warm and dry with out rash, lesion or ecchymosis Psych: alert appropriate, speech clear Diagnostic testing: COVID/ Influenza A and B testing performed and results will be complete in the next 24-72 hours. The patient will be notified of the results in My Chart. MDM: Patient presented to the [facility] today for COVID and Influenza testing. Vital signs were evaluated and found to be within normal limits. Avelino Monaco was in no acute distress. We discussed the COVID results will be back in the next 1-2 days. In accordance with the CDC guidelines, Avelino Monaco was instructed to quarantine, if indicated, based on symptoms and exposure. We have discussed over the counter medications to use for their symptoms. He was given a work note for today. They will follow-up with their family doctor in the next 2-3 days. If symptoms worsen they will go straight to the emergency department for further evaluation and treatment. They voiced understanding of the plan of care and are in agreement. ASSESSMENT/PLAN: 1. Exposure to SARS-associated coronavirus - ICD9: V01.82, ICD10: Z20.828 - COVID & INFLUENZA A/B & RSV NAAT, ROUTINE - COVID NAAT, UPPER RESPIRATORY, ROUTINE - ROUTINE FLU A/B + RSV Bonnie Shaw APRN.FITNESS PLAN COORDINATOR documented in this encounter [facility] 07-08-2023 History of Presen t illness Narrative Subjective: Patient: Avelino Monaco is a 32 y.o. male Patient is a 32-year-old male presenting to urgent care with sinus congestion and drainage for 2 to 3 weeks. Patient states in the last 2 to 3 days, he has developed increased drainage that is now green-colored, fatigue, headache, general malaise, and mild sore throat. Other symptoms reported include chest congestion. Denies fever or chills. Denies cough, chest pain, shortness of breath. Reports intermittent abdominal pain and diarrhea. Denies vomiting. Minimal relief with OTC ibuprofen and acetaminophen. Review of Systems Constitutional: Positive for appetite change (Decreased) and fatigue. Negative for activity change, chills, diaphoresis and fever. HENT: Positive for congestion, rhinorrhea, sinus pressure and sore throat. Negative for ear discharge, ear pain, sinus pain and trouble swallowing. Respiratory: Positive for chest tightness. Negative for cough and shortness of breath. Cardiovascular: Negative for chest pain. Gastrointestinal: Positive for abdominal pain and diarrhea. Negative for nausea and vomiting. Musculoskeletal: Negative for myalgias. Neurological: Positive for headaches. Negative for dizziness and weakness. Psychiatric/Behavioral: Negative for agitation and confusion. No Known Allergies Current Outpatient Medications on File Prior to Visit Medication Sig Dispense Refill [DISCONTINUED] ARIPiprazole (Abilify) 5 MG tablet Take 5 mg by mouth in the morning. [DISCONTINUED] cloNIDine (Catapres) 0.1 MG tablet Take 0.1 mg by mouth 3 times daily as needed. No current facility-administered medications on file prior to visit. No past medical history on file. Social History Tobacco Use Smoking status: Not on file Smokeless tobacco: Not on file Substance Use Topics Alcohol use: Not on file Objective: BP 129/64 (BP Location: Right arm, Patient Position: Sitting, BP Cuff Size: Large adult) Pulse 90 Temp 36.6 C (97.9 F) (Temporal) Ht 5' 10 (1.778 m) Wt 206 lb (93.4 kg) SpO2 100% BMI 29.56 kg/m Physical Exam Vitals and nursing note reviewed. Constitutional: General: He is not in acute distress. Appearance: Normal appearance. He is not ill-appearing, toxic-appearing or diaphoretic. HENT: Head: Normocephalic and atraumatic. Right Ear: Tympanic membrane, ear canal and external ear normal. Left Ear: Tympanic membrane, ear canal and external ear normal. Nose: Congestion present. No rhinorrhea. Mouth/Throat: Mouth: Mucous membranes are moist. Pharynx: Oropharynx is clear. Posterior oropharyngeal erythema present. No oropharyngeal exudate. Eyes: Extraocular Movements: Extraocular movements intact. Conjunctiva/sclera: Conjunctivae normal. Cardiovascular: Rate and Rhythm: Normal rate and regular rhythm. Heart sounds: No murmur heard. No friction rub. No gallop. Pulmonary: Effort: Pulmonary effort is normal. No respiratory distress. Breath sounds: Normal breath sounds. No stridor. No wheezing, rhonchi or rales. Musculoskeletal: Cervical back: Normal range of motion. Neurological: General: No focal deficit present. Mental Status: He is alert and oriented to person, place, and time. Psychiatric: Mood and Affect: Mood normal. Behavior: Behavior normal. Thought Content: Thought content normal. Judgment: Judgment normal. Assessment 1. Acute non-recurrent sinusitis, unspecified location Plan Diagnoses and all orders for this visit: Acute non-recurrent sinusitis, unspecified location - amoxicillin-clavulanate (Augmentin) 875-125 MG tablet; Take 1 tablet by mouth 2 times daily for 7 days. Plan of care for this patient is to treat for acute sinusitis. Given duration of symptoms, I feel it is appropriate to cover for bacterial sinusitis with an antibiotic. Patient is advised a prescription for Augmentin is sent to pharmacy. Patient is advised to drink plenty of fluids and rest. Advised warm, moist facial compresses. Advised OTC ibuprofen or acetaminophen may be used on a short-term basis for relief of pain and discomfort. Advised follow-up with PCP for worsening or persistent symptoms. Patient is agreeable to treatment plan. Ayleen Brooks PA-C 07/08/23 10:40 AM If symptoms do not improve, worsen, or new symptoms develop, see PCP for further evaluation. documented in this encounter [facility] 03-31-2023 Note HNO ID: [id number] Author: ALMA Massey Service: ? Author Type: Physician Auto Transmission Technician Type: Progress Notes Filed: 03/31/2023 4:25 PM Note Text: This note was created using [employer] Systems[employer]. Subjective Avelino Monaco is a 32 year old male. HPI 32-year-old male presents for sore throat, congestion, body aches, headache that started about 3 to 4 days ago. Patient started getting sore throat on Wednesday. He states his nasal congestion started about 3 days ago as well. He has not had any fevers. He has had some body aches. No sick contacts. No cough. No vomiting or diarrhea. PAST MEDICAL HISTORY Diagnosis Date Ankle fracture left Bipolar 1 disorder (HCC) 04/06/2018 Depression dx in teens PAST SURGICAL HISTORY Procedure Laterality Date NONE ALLERGIES Seasonal Allergies MEDICATIONS promethazine (PHENERGAN) 12.5 mg tablet Take 1 tablet by mouth every 6 hours as needed. (Patient not taking: Reported on 03/31/2023) ARIPiprazole (ABILIFY) 5 mg tablet Take 5 mg by mouth once daily. (Patient not taking: Reported on 10/09/2022) bupropion HCl (WELLBUTRIN ORAL) Take 150 mg by mouth. (Patient not taking: Reported on 10/09/2022) lidocaine viscous (LIDOCAINE VISCOUS) 2 % solution Take 5-10 mL by mouth as needed. (Patient not taking: Reported on 11/06/2022) FAMILY HISTORY Problem Relation Age of Onset Rheumatologic disease Mother lupus Psychiatry Mother anxiety Psychiatry Brother ADHD, ODD, manic bipolar Kidney Disease Maternal Grandmother Diabetes Maternal Grandmother other (unknown) Maternal Grandfather Depression Paternal Grandmother Heart disease Paternal Grandmother CHF Depression Maternal Uncle Social History Tobacco Use Smoking status: Former Smokeless tobacco: Never Tobacco comments: vaping Substance Use Topics Alcohol use: No Comment: heavy on weekends in past Review of Systems Constitutional: Positive for chills. Negative for fever. HENT: Positive for congestion, sinus pressure and sore throat. Respiratory: Negative for cough and shortness of breath. Gastrointestinal: Negative for diarrhea and vomiting. Musculoskeletal: Positive for myalgias. Neurological: Positive for headaches. Objective BP 112/78 Pulse 90 Temp 36.8 ?C (98.3 ?F) Resp 21 Wt 100 kg (220 lb 6.4 oz) SpO2 98% BMI 32.64 kg/m? Physical Exam Vitals and nursing note reviewed. Constitutional: General: He is not in acute distress. Appearance: Normal appearance. He is not toxic-appearing. HENT: Right Ear: Tympanic membrane and ear canal normal. Left Ear: Tympanic membrane and ear canal normal. Nose: Congestion present. Mouth/Throat: Mouth: Mucous membranes are moist. Pharynx: Uvula midline. Posterior oropharyngeal erythema present. Tonsils: No tonsillar exudate. 1+ on the right. 1+ on the left. Eyes: Conjunctiva/sclera: Conjunctivae normal. Cardiovascular: Rate and Rhythm: Normal rate and regular rhythm. Pulmonary: Effort: Pulmonary effort is normal. Breath sounds: Normal breath sounds. Skin: General: Skin is warm and dry. Neurological: Mental Status: He is alert. Assessment and Plan ASSESSMENT/PLAN: 1. Sore throat - ICD9: 462, ICD10: J02.9 (primary diagnosis) - suspect viral - Alere Strep Test negative, no culture pending - Discussed supportive care treatment with fluids, rest and analgesia. - The patient may also use warm salt water gargles, throat lozenges and/or OTC throat spray as needed. - STREP A MOLECULAR (POC) 2. URI, acute - ICD9: 465.9, ICD10: J06.9 - Discussed viral etiology and rationale for treatment. - Symptomatic treatment with prn analgesia - Supportive care with fluids and rest - COVID WITH FLUA+B, ROUTINE Diagnosis and treatment plan were discussed and questions were answered to the patient's satisfaction. Pt acknowledged understanding of concepts and follow up plan. Specific signs and symptoms that would indicate the need for higher level of care were discussed in detail warranting prompt ER evaluation. ALMA Massey [facility] 03-31-2023 History of Beny t illness Narrative This note was created using Day[employer]. Subjective Avelino Monaco is a 32 year old male. HPI 32-year-old male presents for sore throat, congestion, body aches, headache that started about 3 to 4 days ago. Patient started getting sore throat on Wednesday. He states his nasal congestion started about 3 days ago as well. He has not had any fevers. He has had some body aches. No sick contacts. No cough. No vomiting or diarrhea. PAST MEDICAL HISTORY Diagnosis Date Ankle fracture left Bipolar 1 disorder (HCC) 04/06/2018 Depression dx in teens PAST SURGICAL HISTORY Procedure Laterality Date NONE ALLERGIES Seasonal Allergies MEDICATIONS promethazine (PHENERGAN) 12.5 mg tablet Take 1 tablet by mouth every 6 hours as needed. (Patient not taking: Reported on 03/31/2023) ARIPiprazole (ABILIFY) 5 mg tablet Take 5 mg by mouth once daily. (Patient not taking: Reported on 10/09/2022) bupropion HCl (WELLBUTRIN ORAL) Take 150 mg by mouth. (Patient not taking: Reported on 10/09/2022) lidocaine viscous (LIDOCAINE VISCOUS) 2 % solution Take 5-10 mL by mouth as needed. (Patient not taking: Reported on 11/06/2022) FAMILY HISTORY Problem Relation Age of Onset Rheumatologic disease Mother lupus Psychiatry Mother anxiety Psychiatry Brother ADHD, ODD, manic bipolar Kidney Disease Maternal Grandmother Diabetes Maternal Grandmother other (unknown) Maternal Grandfather Depression Paternal Grandmother Heart disease Paternal Grandmother CHF Depression Maternal Uncle Social History Tobacco Use Smoking status: Former Smokeless tobacco: Never Tobacco comments: vaping Substance Use Topics Alcohol use: No Comment: heavy on weekends in past Review of Systems Constitutional: Positive for chills. Negative for fever. HENT: Positive for congestion, sinus pressure and sore throat. Respiratory: Negative for cough and shortness of breath. Gastrointestinal: Negative for diarrhea and vomiting. Musculoskeletal: Positive for myalgias. Neurological: Positive for headaches. Objective BP 112/78 Pulse 90 Temp 36.8 C (98.3 F) Resp 21 Wt 100 kg (220 lb 6.4 oz) SpO2 98% BMI 32.64 kg/m Physical Exam Vitals and nursing note reviewed. Constitutional: General: He is not in acute distress. Appearance: Normal appearance. He is not toxic-appearing. HENT: Right Ear: Tympanic membrane and ear canal normal. Left Ear: Tympanic membrane and ear canal normal. Nose: Congestion present. Mouth/Throat: Mouth: Mucous membranes are moist. Pharynx: Uvula midline. Posterior oropharyngeal erythema present. Tonsils: No tonsillar exudate. 1+ on the right. 1+ on the left. Eyes: Conjunctiva/sclera: Conjunctivae normal. Cardiovascular: Rate and Rhythm: Normal rate and regular rhythm. Pulmonary: Effort: Pulmonary effort is normal. Breath sounds: Normal breath sounds. Skin: General: Skin is warm and dry. Neurological: Mental Status: He is alert. Assessment and Plan ASSESSMENT/PLAN: 1. Sore throat - ICD9: 462, ICD10: J02.9 (primary diagnosis) - suspect viral - Alere Strep Test negative, no culture pending - Discussed supportive care treatment with fluids, rest and analgesia. - The patient may also use warm salt water gargles, throat lozenges and/or OTC throat spray as needed. - STREP A MOLECULAR (POC) 2. URI, acute - ICD9: 465.9, ICD10: J06.9 - Discussed viral etiology and rationale for treatment. - Symptomatic treatment with prn analgesia - Supportive care with fluids and rest - COVID WITH FLUA+B, ROUTINE Diagnosis and treatment plan were discussed and questions were answered to the patient's satisfaction. Pt acknowledged understanding of concepts and follow up plan. Specific signs and symptoms that would indicate the need for higher level of care were discussed in detail warranting prompt ER evaluation. ALMA Massey documented in this encounter [facility] 11-08-2022 Miscellaneous Notes Patient has viewed results via [facility]. Leigh Ann Sawyer MA Phone call placed, brief message to contact a nurse to review results. Taamnna Lemus LPN Negative for flu and COVID please notify thank you documented in this encounter [facility] 11-06-2022 Influenza virus A and B RNA and SARS-CoV-2 (COVID-19) N gene panel LAVERNE+probe (Resp) COVID 19 RESULT: SARS-CoV-2 (Agent of COVID-19) Not Detected by RT-PCR or equivalent method. This test was developed and its performance characteristics determined by [facility]'s [facility] [place]. This test has been authorized by FDA under an Emergency Use Authorization (EUA). This test has been validated in accordance with the FDA's Guidance Document Policy for Diagnostics Testing in Laboratories Certified to Perform High Complexity Testing under CLIA prior to Emergency use Authorization for Coronavirus Disease 2019 during the Public Health Emergency issued on December 23, 2019. Test performed by [facility], [facility] [place], [address] [place] [address]. INFLUENZA A PCR: Negative for Influenza A by RT-PCR INFLUENZA B PCR: Negative for Influenza B by RT-PCR [facility] Diagnosis Sinobronchitis- Primary Unspecified sinusitis (chronic) [facility] Diagnosis Sore throat- Primary Acute pharyngitis URI, acute Acute upper respiratory infections of unspecified site documented in this encounter [facility] note* Diagnosis URI, acute- Primary Acute upper respiratory infections of unspecified site Sore throat Acute pharyngitis Nausea Nausea alone documented in this encounter [facility] note* Diagnosis Acute non-recurrent sinusitis, unspecified location- Primary [facility] Diagnosis Exposure to SARS-associated coronavirus- Primary [facility] Diagnosis Right leg swelling- Primary Confusion Unspecified psychosis [facility] Attachments The following attachments cannot be sent through Care Everywhere. * Sinusitis Discharge Instructions, Adult (Maltese) [facility] Family History No Family History Records FoundNo Family History Records FoundNo Family History Records FoundNo Family History Records Found Advance Directives No Advanced Directives Records FoundNo Advanced Directives Records FoundNo Advanced Directives Records FoundNo Advanced Directives Records Found Health Concerns Infection Onset Date Last Indicated Resolved Time COVID-19 Rule-Out 10/09/2022 10/09/2022 Infection Onset Date Last Indicated Resolved Time COVID-19 Rule-Out 11/06/2022 11/06/2022 Infection Onset Date Last Indicated Resolved Time COVID-19 Rule-Out 03/31/2023 03/31/2023 Reason for Referral Specialty Diagnoses / Procedures Referred By Contac t Referred To Contact Cardiology Diagnoses Right leg swelling Procedures Vascular US lower extremity venous duplex right Destiny Livingston MD [address] [place] [address] Referral ID Status Reason Start Date Expiration Date V isits Requested Visits Authorized [id number] Pending Review 09/18/2023 09/17/2024 1 1 Additional Source Comments (unrecognized sect ion and content) No Status Records FoundNo Status Records FoundNo Status Records FoundNo Status Records Found INFORMATION SOURCE (unrecogn ized section and content) DATE CREATED AUTHOR AUTHOR'S ORGANIZ ATION 01/07/2020 [facility] ([place]) DATE CREATED AUTHOR AUTHOR'S ORGANIZ ATION 09/21/2023 [facility] DATE CREATED AUTHOR AUTHOR'S ORGANIZ ATION 10/21/2023 [facility] Source Comments (unrecognize d section and content) In the event this informatio n is protected by the Federal Confidentiality of Alcohol and Drug Abuse Patient Records regulations: The Federal rules restrict any use of the information to criminally investigate or prosecute any alcohol or drug abuse patient.[facility] the event this information is protected by the Federal Confidentiality of Alcohol and Drug Abuse Patient Records regulations: The Federal rules restrict any use of the information to criminally investigate or prosecute any alcohol or drug abuse patient.[facility] the event this information is protected by the Federal Confidentiality of Alcohol and Drug Abuse Patient Records regulations: The Federal rules restrict any use of the information to criminally investigate or prosecute any alcohol or drug abuse patient.[facility] the event this information is protected by the Federal Confidentiality of Alcohol and Drug Abuse Patient Records regulations: The Federal rules restrict any use of the information to criminally investigate or prosecute any alcohol or drug abuse patient.[facility] the event this information is protected by the Federal Confidentiality of Alcohol and Drug Abuse Patient Records regulations: The Federal rules restrict any use of the information to criminally investigate or prosecute any alcohol or drug abuse patient.[facility] the event this information is protected by the Federal Confidentiality of Alcohol and Drug Abuse Patient Records regulations: The Federal rules restrict any use of the information to criminally investigate or prosecute any alcohol or drug abuse patient.[facility] the event this information is protected by the Federal Confidentiality of Alcohol and Drug Abuse Patient Records regulations: The Federal rules restrict any use of the information to criminally investigate or prosecute any alcohol or drug abuse patient.[facility] the event this information is protected by the Federal Confidentiality of Alcohol and Drug Abuse Patient Records regulations: The Federal rules restrict any use of the information to criminally investigate or prosecute any alcohol or drug abuse patient.[facility] the event this information is protected by the Federal Confidentiality of Alcohol and Drug Abuse Patient Records regulations: The Federal rules restrict any use of the information to criminally investigate or prosecute any alcohol or drug abuse patient.[facility] Reason for Visit (unrecogniz ed section and content) Reason Comments Telemedicine Reason Comments work excuse Reason Comments Work Excuse Reason Comments Headache Cough, nasal congest ion, throat pain x4 days. Reason Comments Pain, Throat Pt reported throat p ain rated 4, cough, nasal congestion x2 days. Reason Comments Results Reason Comments Sore Throat HARGROVE, congestion, body aches x 4 days Reason Comments Headache Congestion, green mu cus, diarrhea X 3 days, sore throat, stomach ache X 2 weeks. Taking Tylenol/Ibuprofen. Reason Comments Viral Syndrome Fever headaches body aches started last Wednesday. Has been very tired Specialty Diagnoses / Procedures Referred By Angle rodriguez Referred To Contact Diagnoses office visit Procedures consult, test,treat Shavon Le PA-C [address] [place] [address] [facility] [place] [address] Referral ID Status Reason Start Date Expiration Date Visits Requested Visits Authorized [id number] Authorized Patient Cleared - Qualified 100% FAS 3 11/17/2023 99 99 Reason Comments Leg Swelling Pt states he's havin g bilateral leg swelling Numbness Pt states he started having new confusion and numbness that started around 4 Care Teams (unrecognized sec tion and content) Assistant Center Manager Relationship Specialty Start Date End Date Shavon Le PA-C [address] [place], [place] [id number] PCP - General Family Practice 02/02/18 Assistant Center Manager Relationship Specialty Start Date End Date Shavon Le PA-C [address] [place], [place] [id number] PCP - General Family Practice 02/02/18 Assistant Center Manager Relationship Specialty Start Date End Date Shavon Le PA-C [address] [facility] [place] [address] PCP - General Family Medicine 02/02/18 Assistant Center Manager Relationship Specialty Start Date End Date Shavon Le PA-C [address] [facility] [place] [address] PCP - General Family Medicine 02/02/18 Assistant Center Manager Relationship Specialty Start Date End Date Shavon Le PA-C [address] [facility] [place] [address] PCP - General Family Medicine 02/02/18 Assistant Center Manager Relationship Specialty Start Date End Date Shavon Le [address] [facility] [place] [address] PCP - General Physician Auto Transmission Technician 07/08/23 Assistant Center Manager Relationship Specialty Start Date End Date Shavon Le PA-C [address] [facility] [place] [address] PCP - General Family Medicine 02/02/18 Assistant Center Manager Relationship Specialty Start Date End Date Shavon Le [address] [facility] [place] [address] PCP - General Physician Auto Transmission Technician 07/08/23 Assistant Center Manager Relationship Specialty Start Date End Date Shavon Le [address] [facility] [place] [address] PCP - General Physician Auto Transmission Technician 07/08/23 Scheduled Active and Recently Administ ered Medications (unrecognized section and content) FOR RECORDS PERTAINING TO PATIENTS WHO ARE OR HAVE BEEN ENROLLED IN A CHEMICAL DEPENDENCY/SUBSTANCEABUSE PROGRAM, SOME INFORMATION MAY BE OMITTED. This clinical summary was aggregated from multiple sources. Caution should be exercised in using it in the provision of clinical care. This summary normalizes information from multiple sources, and as a consequence, information in this document may materially change the coding, format and clinical context of patient data. In addition, data may be omitted in some cases. CLINICAL DECISIONS SHOULD BE BASED ON THE PRIMARY CLINICAL RECORDS. [employer] [facility]. provides no warranty or guarantee of the accuracy or completeness of information in this document.
[2023-11-07 03:28] LABS: Alcohol, Blood (Medical)-Serum < 3.0 mg/dL
[2023-11-07 03:33] LABS: ALB/GLOB Ratio 1.2 RATIO (0.9-2.4); AST(SGOT) 19 U/L (15-37); Alanine Aminotransfer ALT/SGPT 20 U/L (16-61); Albumin, Serum 3.7 g/dL (3.2-5.0); Alkaline Phosphatase 59 U/L (45-117); Anion Gap 6 (5-15); BUN 12 mg/dL (7-18); BUN/Creat Ratio 12.3 RATIO (10-20); Calcium,Total 8.8 mg/dL (8.5-10.1); Chloride 107 mmol/L (98-107); Creatinine, Serum 0.98 mg/dL (0.70-1.30); EST Glomerular Filtration Rate 93 mL/min (>60); Est Glom Filt Rate - Afr Amer 113 mL/min (>60); Estimated Creatinine Clearance 112.19 ml/min; Glucose 98 mg/dL (74-106); Potassium 3.5 mmol/L (3.5-5.1); Protein, Total 6.7 g/dL (6.4-8.2); Sodium Level 140 mmol/L (136-145)
[2023-11-07 03:43] LABS: Absolute Lymphocyte Count 1.02 X10^3/uL (0.83-4.51); Absolute Neutrophil Count 6.2 X10^3/uL (2.0-7.7); Basophil# 0.04 X10^3/uL; Basophil% 0.5 % (0-1); Eosinophil# 0.03 X10^3/uL; Eosinophils% 0.4 % (0-5); Hematocrit 38.6 % (40-54); Hemoglobin 13.2 g/dL (13.0-16.5); Lymphocyte # 1.02 X10^3/ul (0.83-4.51); Lymphocyte % 12.8 % (19-41); Mean Corp Hgb Conc 34.2 g/dL (32-36); Mean Corpuscular Hgb 29.8 pg (27.0-32.0); Mean Corpuscular Volume 87.1 fL (80-94); Monocyte# 0.62 X10^3/uL; Monocyte% 7.8 % (0-10); NRBC Flagged by Analyzer 0 % (0-5); Neutrophil # 6.24 X10^3/uL (2.7-7.7); Neutrophil % 78.2 % (47-70); Platelet Count 252 K/mm3 (150-450); RBC Distribution Width CV 12.4 % (11.6-14.6); RBC Distribution Width SD 39.6 fl (35.1-43.9); Red Blood Count 4.43 M/mm3 (4.6-6.2)
[2023-11-07 04:26] LABS: Amphetamine Urine VISTA POSITIVE (<1000 ng/mL); Barbiturate Urine VISTA NEGATIVE (< 200 ng/mL); Benzodiazepine Urine VISTA NEGATIVE (< 200 ng/mL); Cocaine Urine VISTA NEGATIVE (< 300 ng/mL); Ecstacy Urine VISTA POSITIVE (< 500 ng/mL); Methadone Urine VISTA NEGATIVE (< 300 ng/mL); PCP Urine VISTA NEGATIVE (< 25 ng/mL); THC Urine VISTA NEGATIVE (< 50 ng/mL); Vista UDS pH Range 6
[2023-11-07 06:53] VITALS: BP 126/79; PULSE 105; RESP 21; O2SAT 98
== END 2023-11-07 07:04 | disposition home or self-care (01) ==
PROVIDERS: Emergency Provider Student in an Organized Health Care Education/Training Program; PCP Physician Assistant; Visit Provider Student in an Organized Health Care Education/Training Program
DX: F29 Unspecified psychosis not due to a substance or known physiological condition (principal); F15.10 Other stimulant abuse, uncomplicated; F16.10 Hallucinogen abuse, uncomplicated; F17.210 Nicotine dependence, cigarettes, uncomplicated; R41.0 Disorientation, unspecified
CPT/HCPCS: 80053; 80307; 80320; 85025; 96360; 99282; G0480

== ENCOUNTER 2023-11-07 18:52 | Emergency (ER) | payer SELFPAY ==
[2023-11-07 18:53] VITALS: BP 173/97; PULSE 109; RESP 20; TEMP 36.4; O2SAT 98; BMI 28.8
--- NOTE | 2023-11-07 19:10 | EDS_ITS ---
HPI <ALMA Monroy - Last Filed: 11/07/23 20:01> History of Present Illness Chief Complaint: Other, Pain/Inj Narrative Narrative: 33-year-old male was evaluated this morning in the ED for abnormal behavior. Urine tox screen was positive for amphetamines and ecstasy. He was evaluated by crisis and given resources for follow-up. Since he has gone home under the care of his mother he has not been able to rest. He is having twitching and continued movements. Mom states he tries to lay down but cannot relax. He has multiple changing complaints such as that his throat hurts, he has a weird lumpy feeling in his head (but no headache), felt nauseous on the way here but is not vomiting. He is able to drink water. He has no chest pain or shortness of breath. PFSH <ALMA Monroy - Last Filed: 11/07/23 20:01> [facility] Medical History Bipolar disorder Manic behavior Home Medications hydroxyzine pamoate 25 mg capsule 25 mg PO TID PRN PRN Anxiety #15 caps 12/08/18 [Rx Last Taken Unknown] olanzapine 5 mg tablet (Zyprexa) 5 mg PO DAILY 12/28/18 [History Last Taken Unknown] Allergy/AdvReac Type Severity Reaction Status Date / Time No Known Allergies Allergy Verified 11/07/23 02:37 Social History Smoking Status: Current every day smoker tobacco type: cigarettes ROS <ALMA Monroy - Last Filed: 11/07/23 20:01> ROS ED ROS Narrative Constitutional: Negative for fever, chills, malaise. CVS: Negative for palpitations, chest pain, syncope. Respiratory: Negative for shortness of breath. GI: Positive for nausea. Negative for abdominal pain, vomiting, diarrhea. Neuro: Negative for headache. EXAM <ALMA Monroy - Last Filed: 11/07/23 20:01> Physical Exam Narrative Exam Narrative: CONST: Patient sitting in bed, shaky and unkempt. EYES: Normal inspection. ENT: Normal inspection, moist mucous membranes. NECK: Normal inspection. RESP: No respiratory distress, CTAB. CVS: Regular rate and rhythm, no murmur, no gallop. ABD: Soft and nontender, no guarding or rebound, nondistended. SKIN: Color normal, no rash, warm, dry, intact. EXTREMITIES: Normal appearance, no pedal edema. NEURO: Oriented x4. Follows commands. Involuntary movements similar to myoclonic jerks of the extremities intermittently. PSYCH: Normal affect. Const Vital Signs: 11/07/23 18:53 Temperature 97.5 F L Temperature Source Temporal Pulse Rate 109 H Respiratory Rate 20 H Blood Pressure 173/97 H Blood Pressure Mean 122 Pulse Ox 98 Oxygen Delivery Method Room Air <Dr. Khris Ocampo DO - Last Filed: 11/07/23 20:25> Physical Exam Const Vital Signs: 11/07/23 18:53 Temperature 97.5 F L Temperature Source Temporal Pulse Rate 109 H Respiratory Rate 20 H Blood Pressure 173/97 H Blood Pressure Mean 122 Pulse Ox 98 Oxygen Delivery Method Room Air MDM <Nicole Silva PA - Last Filed: 11/07/23 20:01> [facility] Narrative Medical decision making narrative: History gathered from: Patient and mom Patient is having involuntary myoclonic jerks secondary to amphetamine and MDMA use. He was seen and evaluated this morning and had normal CBC and CMP so I do not think blood work needs repeated. He is awake and alert just having side effects from drug use. He is not having seizures. For symptom management he was given IM Ativan. Discussed that this will not be prescribed for home because the addiction risk is high. He has resources from crisis to follow-up, has a primary care doctor, was instructed to see them and discontinue drug use as this caused his symptoms. He was discharged home. <Dr. Khris Ocampo DO - Last Filed: 11/07/23 20:25> [facility] Narrative Medical decision making narrative: History gathered from: Patient and mom Patient is having involuntary myoclonic jerks secondary to amphetamine and MDMA use. He was seen and evaluated this morning and had normal CBC and CMP so I do not think blood work needs repeated. He is awake and alert just having side effects from drug use. He is not having seizures. For symptom management he was given IM Ativan. Discussed that this will not be prescribed for home because the addiction risk is high. He has resources from crisis to follow-up, has a primary care doctor, was instructed to see them and discontinue drug use as this caused his symptoms. He was discharged home. I have personally performed a face to face assessment of the patient and have reviewed the [facility] Note. I performed a substantive portion of the visit including all aspects of the following. My hernandez findings include: History is 33-year-old male states that he did ecstasy. Which after a small amount of arguing he admits is probably cut with some type of amphetamine. He is tested positive for amphetamines previously in 2019 and tested positive last night when he was in the emergency department. He is with his mom today. They note that he cannot stop twitching himself awake and he really needs to sleep. He notes that he had bleeding from the right ear. He notes bumps on his head and would like an EEG. Now he notes bilateral ear pain. He notes extreme swelling inferior posterior to his ear all the way to my eardrum . He notes sore throat. Exam is patient has involuntary myoclonic jerking. Tympanic membrane's appear normal. I do not see any abrasions or injury or swelling along the ear canal. I do not palpate any significant swelling differences from [id number]. Oropharyngeal exam does not demonstrate any tonsillar swelling retropharyngeal peritonsillar abscess palatal petechiae uvular swelling or exudate. There is no trismus. Medical Decison Making first and foremost the patient needs to stop doing illicit drugs. As far as his myoclonic jerks these may take a while to fully subside. I will give him a dose of Ativan here tonight to see if that can help him sleep. I advised them that I would not pursue prescribing any benzodiazepines at home due to the high abuse potential. Patient is very argumentative and it is difficult to care for him while he is like this. I am not seeing any definitive emergent reason to keep him in the hospital. Discharge Plan Triage Chief Complaint: Other, Pain/Inj ED Midlevel Provider: Nicole Silva ED Provider: Khris Ocampo Dx/Rx/DC Orders Clinical Impression: Choreoathetosis, Polysubstance abuse Instructions: Addiction: Getting Help Prescriptions: No Action hydroxyzine pamoate 25 MG capsule 25 mg PO TID PRN PRN (Reason: Anxiety) Qty: 15 0RF olanzapine [Zyprexa] 5 MG tablet 5 mg PO DAILY Primary Care Provider: Shavon Le Referrals: Shavon Le, PA [Primary Care Provider] - Activity Restrictions/Additional Instructions: The symptoms and drinking a lot are a side effects of drug use. You were given a medication called Ativan to help calm the. You need to follow-up with the resources provided to you by crisis and your primary care doctor. Disposition Disposition: Home, Self Care Discharge Date/Time: 11/07/23 20:22
--- OUTSIDE RECORDS SUMMARY | 2023-11-07 19:51 | XMS RPT_ITS | CCD ---
Author Name Unknown Address [address] [place] [address] Organization [facility] Care Team Providers Care Loan Officer Assistant Name Role Phone ALEXIS GRIFFIN Admitting Unavailable ALEXIS GRIFFIN Attending Unavailable ALEXIS GRIFFIN Primary Care Unavailable Shavon LE Consulting Unavailable Shavon LE Referring Unavailable PROVIDER, UNKNOWN Consulting Unavailable Shavon Le PA-C Primary Care Provider Shavon Le PA-C Primary Care Provider [phone] Shavon Le Primary Care Provider [phone] JENELLE NELSON Referring Unavailable Shavon LE Primary [...] Allergy to substance 3 Other: See Comments [facility] (1 source) FLUoxetine; Translations: [FLUOXETINE] Drug Allergy 3 [facility] Repository Medications Current Medications Medication Drug [...] 86 mm[Hg] Destiny Livingston MD Work Phone: [facility] [employer] 09-18-2023 22:38-0500 Heart rate 94 /min Destiny Livingston MD Work Phone: [facility] 09-18-2023 22:38-0500 Respiratory rate 16 /min Destiny Livingston MD Work Phone: [facility] 09-18-2023 22:38-0500 SaO2% (BldA) [Mass fraction] 98 % Destiny Livingston MD Work Phone: [facility] 09-18-2023 22:38-0500 Systolic blood pressure 131 mm[Hg] Destiny Livingston MD Work Phone: [facility] 09-18-2023 21:41-0500 Body height 175.3 cm Destiny Livingston MD Work Phone: [facility] 09-18-2023 21:41-0500 Body mass index (BMI) [Ratio] 29.53 kg/m2 Destiny Livingston MD Work Phone: [facility] 09-18-2023 21:41-0500 Body weight 90.72 kg Destiny Livingston MD Work Phone: [facility] 08-19-2023 11:06-0400 Body temperature 97.81 [degF] Bonnie Shaw APRN.CNP Work Phone: [facility] 08-19-2023 11:06-0400 Body weight 91.63 kg Bonnievelma Lopezer SHANK BURNISHER.FLORAL CLERK Work Phone: [facility] 08-19-2023 11:06-0400 Diastolic blood pressure 62 mm[Hg] Bonnie Shaw SHANK BURNISHER.FLORAL CLERK Work Phone: [facility] 08-19-2023 11:06-0400 Heart rate 73 /min Bonnievelma Lopezer SHANK BURNISHER.FLORAL CLERK Work Phone: [facility] 08-19-2023 11:06-0400 Respiratory rate 16 /min Bonnie Shaw SHANK BURNISHER.FLORAL CLERK Work Phone: [facility] 08-19-2023 11:06-0400 SaO2% (BldA) [Mass fraction] 97 % Bonnie Lopezer SHANK BURNISHER.FLORAL CLERK Work Phone: [facility] 08-19-2023 11:06-0400 Systolic blood pressure 126 mm[Hg] Bonnie Lopezer SHANK BURNISHER.FLORAL CLERK Work Phone: [facility] 07-08-2023 10:09-0400 Body height 177.8 cm Kellimarie Hay PA-C Work Phone: [facility] 07-08-2023 10:09-0400 Body mass index (BMI) [Ratio] 29.56 kg/m2 Kellimarie Hay PA-C Work Phone: [facility] 07-08-2023 10:09-0400 Body temperature 97.9 [degF] Kellimarie Hay PA-C Work Phone: [facility] 07-08-2023 10:09-0400 Body weight 93.44 kg Kellimarie Hay PA-C Work Phone: [facility] 07-08-2023 10:09-0400 Diastolic blood pressure 64 mm[Hg] Kellimarie Hay PA-C Work Phone: [facility] 07-08-2023 10:09-0400 Heart rate 90 /min Kellimarie Hay PA-C Work Phone: [facility] 07-08-2023 10:09-0400 SaO2% (BldA) [Mass fraction] 100 % Jesikaarie Hay PA-C Work Phone: [facility] 07-08-2023 10:09-0400 Systolic blood pressure 129 mm[Hg] Kelquiquee Hay PA-C Work Phone: [facility] 03-31-2023 16:07-0400 Body temperature 98.29 [degF] Krislyn Aberegg PA Work Phone: [facility] 03-31-2023 16:07-0400 Body weight 99.97 kg Krislyn Aberegg PA Work Phone: [facility] 03-31-2023 16:07-0400 Diastolic blood pressure 78 mm[Hg] Krislyn Aberegg PA Work Phone: [facility] 03-31-2023 16:07-0400 Heart rate 90 /min Krislyn Aberegg PA Work Phone: [facility] 03-31-2023 16:07-0400 Respiratory rate 21 /min Krislyn Aberegg PA Work Phone: [facility] 03-31-2023 16:07-0400 SaO2% (BldA) [Mass fraction] 98 % Krislyn Aberegg PA Work Phone: [facility] 03-31-2023 16:07-0400 Systolic blood pressure 112 mm[Hg] Krislyn Aberegg PA Work Phone: [facility] 11-06-2022 11:09-0500 Body temperature 99.19 [degF] Halina Denbow PA-C Work Phone: [facility] 11-06-2022 11:09-0500 Body weight 94.44 kg Halina Denbow PA-C Work Phone: [facility] 11-06-2022 11:09-0500 Diastolic blood pressure 68 mm[Hg] Halina Denbow PA-C Work Phone: [facility] 11-06-2022 11:09-0500 Heart rate 68 /min Halina Denbow PA-C Work Phone: [facility] 11-06-2022 11:09-0500 Respiratory rate 18 /min Halina Denbow PA-C Work Phone: [facility] 11-06-2022 11:09-0500 SaO2% (BldA) [Mass fraction] 98 % Halina Denbow PA-C Work Phone: [facility] 11-06-2022 11:09-0500 Systolic blood pressure 124 mm[Hg] Halina Denbow PA-C Work Phone: [facility] 10-09-2022 12:38-0500 Body temperature 99.1 [degF] Meg Mendez APRN.FLORAL CLERK Work Phone: [facility] 10-09-2022 12:38-0500 Body weight 96.16 kg Meg Mendez APRN.FLORAL CLERK Work Phone: [facility] 10-09-2022 12:38-0500 Diastolic blood pressure 70 mm[Hg] Meg Mendez APRN.FLORAL CLERK Work Phone: [facility] 10-09-2022 12:38-0500 Heart rate 67 /min Meg Mendez APRN.FLORAL CLERK Work Phone: [facility] 10-09-2022 12:38-0500 Respiratory rate 16 /min Meg Mendez APRN.FLORAL CLERK Work Phone: [facility] 10-09-2022 12:38-0500 SaO2% (BldA) [Mass fraction] 96 % Meg Mendez APRN.FLORAL CLERK Work Phone: [facility] 10-09-2022 12:38-0500 Systolic blood pressure 118 mm[Hg] Meg Mendez APRN.FLORAL CLERK Work Phone: [facility] 01-30-2022 15:08-0400 Body temperature 98.71 [degF] Khris Desouza APRN.FLORAL CLERK, DNP Work Phone: [facility] 01-30-2022 15:08-0400 Body weight 90.27 kg Khris Desouza APRN.GIO, DNP Work Phone: [facility] 01-30-2022 15:08-0400 Diastolic blood pressure 70 mm[Hg] Khris Desouza APRN.FLORAL CLERK, DNP Work Phone: [facility] 01-30-2022 15:08-0400 Heart rate 69 /min Khris Desouza APRN.FLORAL CLERK, DNP Work Phone: [facility] 01-30-2022 15:08-0400 Respiratory rate 14 /min Khris Desouza APRN.FLORAL CLERK, DNP Work Phone: [facility] 01-30-2022 15:08-0400 SaO2% (BldA) [Mass fraction] 100 % Khris Desouza APRN.FLORAL CLERK, DNP Work Phone: [facility] 01-30-2022 15:08-0400 Systolic blood pressure 108 mm[Hg] Khris Desouza APRN.FLORAL CLERK, DNP Work Phone: [facility] Encounters Encounter Date Encounter Type Care Provider Facility Start: 10-19-2023 End: 10-20-2023 ambulatory [facility] Facility:[facility] Start: 10-19-2023 End: 10-19-2023 ambulatory [facility] Facility:[facility] Start: 09-18-2023 End: 09-19-2023 Emergency department patient visit [facility] Start: 09-18-2023 End: 09-18-2023 Emergency department patient visit Destiny Livingston MD Work Phone: [facility] Procedures Date Procedure Procedure Detail [...] or older (1 - 1-dose 60+ series) [facility] Start: 2039 Zoster Vaccines (1 of 2) Zoster Vaccines (1 of 2) [facility] Start: 12-28-2028 DTaP/Tdap/Td Vaccines (2 - Td or Tdap) DTaP/Tdap/Td Vaccines (2 - Td or Tdap) [facility] Start: 12-28-2028 Urine microalbumin profile [facility] Start: 06-25-2023 Influenza vaccination [facility] Start: 03-31-2023 End: 04-14-2023 Influenza virus A and B RNA and SARS-CoV-2 (COVID-19) N gene panel - Respiratory specimen by LAVERNE with probe detection COVID WITH FLUA+B, ROUTINE Microbiology Routine URI, acute Expected: 03/31/2023, Expires: 04/14/2023 [facility] Work Phone: Immunizations Immunization Date Immunization Notes Care Provider Kiet blakejon 12-28-2018 tetanus toxoid, redu ricardo diphtheria toxoid, and acellular pertussis vaccine, adsorbed Khris Desouza APRN.FLORAL CLERK, DNP Work Phone: [facility] Work Phone: Payers Date Payer Category Payer Unknown [employer] PPO OOS [id number] 2022-Present [phone] [address] [place] [address] PPO [id number] 2022 Unknown [id number] 2022 Unknown [employer] SS PPO [id number] 2022-Present [phone] [address] [place] [id number] PPO [id number] 1989 Unknown [id number] Unknown [id number] Social History Date Type Detail Facility Start: 05-19-2019 End: 10-09-2022 Tobacco smoking status NHIS Ex-smoker [facility] Start: 05-19-2019 End: 10-09-2022 Tobacco use and exposure Smokeless tobacco non-user [facility] Start: 01-30-2022 End: 03-31-2023 Alcohol intake Current non-drinker of alcohol (finding) [facility] Start: 07-09-2020 End: 02-09-2022 History SDOH Alcohol Frequency 1 [facility] Start: 07-28-2018 History SDOH Alcohol Comment heavy on weekends in past [facility] Start: 07-09-2020 End: 02-09-2022 History SDOH Social Connections Phone 4 [facility] Start: 07-09-2020 End: 02-09-2022 History SDOH Social Connections Get Together 3 [facility] Start: 07-09-2020 End: 02-09-2022 History SDOH Social Connections Denominational 2 [facility] Start: 07-09-2020 History SDOH Social Connections Living 7 [facility] Start: 07-09-2020 End: 02-09-2022 History SDOH Physical Activity DPW 5 [facility] Start: 07-09-2020 History SDOH Physical Activity MPS 6 [facility] Start: 07-09-2020 Education 14 [facility] Start: 08-25-2019 End: 10-09-2022 Tobacco Comment vaping [facility] Start: 1990 Sex Assigned At Not on file [facility] Start: 01-20-2022 End: 07-08-2023 Exposure to SARS-CoV-2 (event) Not sure [facility] Work Phone: Start: 02-09-2022 History SDOH Social Connections Living 8 [facility] Start: 02-09-2022 History SDOH Physical Activity MPS 9 [facility] Start: 01-30-2022 End: 02-09-2022 Exposure to SARS-CoV-2 (event) Unable to assess [facility] Work Phone: History of tobacco use Current smoker [facility] Tobacco smoking stat [facility] Tobacco smoking consumption unknown [facility] Start: 02-09-2022 End: 09-18-2023 Gender identity Not on file [facility] Start: 02-09-2022 End: 09-18-2023 History of Social function [facility] Do you belong to any clubs or organizations such as jainism groups, unions, fraternal or athletic groups, or school groups? Yes [facility] Are you now , , , , never or living with a partner? Living with partner [facility] How often to you hav e a drink containing alcohol? Never [facility] How many standard dr inks containing alcohol do you have on a typical day? 1 or 2 [facility] How hard is it for y ou to pay for the very basics like food, housing, medical care, and heating Not hard at all [facility] Do you feel stress - tense, restless, nervous, or anxious, or unable to sleep at night because your mind is troubled all the time - these days [OSQ] Rather much [facility] (I/We) worried wherobin er (my/our) food would run out before (I/we) got money to buy more. Never true [facility] In the past 12 month s, was there a time when you were not able to pay the mortgage or rent on time? No [facility] Start: 09-18-2023 Tobacco smoking status NHIS Smokes tobacco daily [facility] Clinical Notes 01-30-2022 to 10-19-2023 Discharge Christopher Santiago RN - 09/18/2023 5:51 PM Imelda Santiago RN - 09/18/2023 5:51 PM ESTED Attestation Note - Destiny Livingston MD - 09/18/2023 5:51 PM ESTPatient Instructions Note Date & Type Note Facility 10-19-2023 Note HNO ID: [id number] Author: Shavon Le PA-C Service: ? Author Type: Physician Pipe Caulker Type: Progress Notes Filed: 10/19/2023 4:38 PM Note Text: 33 year old male with c/o anxiety/ depression, 10/20/2021 last visit with me. Sleeping longer than normal, feeling down. from [place] 2.5 years (her decision but somewhat mutual), moved house to [place], shared parenting ex-partner stopped visitation, made up allegations with [facility]. Hard time staying focused. PTSD from separation from other children. Sleep affected by intermittent bouts with depression. 14-16 hours if nothing to do. Usually 4-5 hour and up. Working in automation tech. Uses marijuana occasionally. ETOH: rare No other drugs No suicidal fantasies of self injury or suicide. No cutting (from past). Looking forward to travel and doctorate in engineering. Prior medications for depression/ anxiety, bipolar 1: Aripiprazole, Bupropion, Carbamezapine Reviewed 09/18/2023 [place] ED record Labs WNL except WBC 11.3, [...] Date Ankle fracture left Bipolar 1 disorder ([facility]) 04/06/2018 Depression dx in teens PAST SURGICAL HISTORY Procedure Laterality Date NONE Social History Tobacco Use Smoking status: Former Smokeless tobacco: Never Tobacco comments: vaping Substance Use Topics Alcohol use: No Comment: heavy on weekends in past ACTIVE PROBLEM LIST Bipolar 1 Disorder ([facility]) Methamphetamine Use ([facility]) Alcohol Abuse Carl (Generalized Anxiety Disorder) Current [...] URINALYSIS, WITH MICROSCOPIC M Cornel Le PA-C [facility] 09-18-2023 Hospital Discharg e instructions Destiny [...] your results today. Thank you for choosing [facility] for your care. Sincerely, Destiny Livingston MD documented in this encounter [facility] 09-18-2023 Emergency department Note Bed: 35 Expected date: Expected time: Means of arrival: Comments: triage Bambi Santiago RN 09/18/232128 [facility] 09-18-2023 Emergency department Note Bed: 35 Expected date: Expected time: Means of arrival: Comments: triage Bambi Santiago RN 09/18/232128 documented in this encounter [facility] 09-18-2023 Miscellaneous Notes Emergency Department Encounter [facility] EMERGENC[facility] DEPT Patient: Avelino Monaco : 1990 [...] dictating provider for clarification.) Destiny Livingston MD [facility] Destiny Livingston MD 09/19/23 0122 documented in this encounter [facility] 09-18-2023 Note Formatting of this n ote might be different from the original. Emergency Department Encounter [facility] EM[facility] DEPT Patient: Avelino Monaco : 1990 Date of Evaluation: 09/18/2023 ED Supervising Physician: Destiny Livingston MD I independently examined and evaluated Avelino Monaco. This will serve as my Supervisory note and shared attestation. I did perform a substantive portion of the visit including all aspects of the Medical Decision Making. I wore appropriate PPE for the entirety of this encounter. In brief, Aveilno Monaco is a 33 y.o. that presents [...] clarification.) Destiny Livingston MD Acute Care [facility] Destiny Livingston MD 09/19/23 0122 [facility] 09-18-2023 Note Formatting of this n ote might be different from the original. Emergency Department Encounter [facility] EMERGENC[facility] DEPT Patient: Avelino Monaco : 1990 [...] dictating provider for clarification.) Destiny Livingston MD [employer] [facility] Destiny Livingston MD 09/19/23 0122 [facility] 08-19-2023 Note HNO ID: [id number] Author: Bonnie Shaw APRN.FLORAL CLERK Service: ? Author Type: Nurse Practitioner Type: [...] mucosal membranes moist pink no exudate no MATERIAL HANDLING SUPERVISOR Neck: full ROM, no meningeal signs Cardiac: [...] My Chart. MDM: Patient presented to the Psychiatric today for COVID and Influenza testing. Vital [...] ROUTINE FLU A/B + RSV Bonnie Shaw APRN.[facility] 08-19-2023 History of Beny rodriguez illness Narrative [...] mucosal membranes moist pink no exudate no MATERIAL HANDLING SUPERVISOR Neck: full ROM, no meningeal signs Cardiac: [...] My Chart. MDM: Patient presented to the Psychiatric today for COVID and Influenza testing. Vital [...] ROUTINE FLU A/B + RSV Bonnie Shaw APRN.FLORAL CLERK documented in this encounter [facility] 07-08-2023 History of Presen t illness [...] for further evaluation. documented in this encounter [facility] 03-31-2023 Note HNO ID: [id number] Author: ALMA Massey Service: ? Author Type: Physician Pipe Caulker Type: Progress Notes Filed: 03/31/2023 4:25 PM Note Text: This note was created using [employer]oter[employer]. Subjective Avelino Monaco is a 32 year [...] detail warranting prompt ER evaluation. ALMA Massey [facility] 03-31-2023 History of Beny t illness Narrative This note was created using [employer]. Subjective Avelino Monaco is a 32 year [...] evaluation. ALMA Massey documented in this encounter [facility] 11-08-2022 Miscellaneous Notes Patient has viewed results via [employer]. Leigh Ann Sawyer MA Phone call placed, brief message to contact a nurse to review results. Tamanna Lemus LPN Negative for flu and COVID please notify thank you documented in this encounter [facility] 11-06-2022 Influenza virus A and B RNA and SARS-CoV-2 (COVID-19) N gene panel LAVERNE+probe (Resp) COVID 19 RESULT: SARS-CoV-2 (Agent of COVID-19) Not Detected by RT-PCR or equivalent method. This test was developed and its performance characteristics determined by [facility]'s [facility] [place]. This test has been authorized by FDA under an Emergency Use Authorization (EUA). This test has been validated in accordance with the FDA's Guidance Document Policy for Diagnostics Testing in Laboratories Certified to Perform High Complexity Testing under CLIA prior to Emergency use Authorization for Coronavirus Disease 2019 during the Public Health Emergency issued on December 23, 2019. Test performed by [facility], [facility] [place], [address] [place] [address]. INFLUENZA A PCR: Negative for Influenza A by RT-PCR INFLUENZA B PCR: Negative for Influenza B by RT-PCR [facility] Diagnosis Sinobronchitis- Primary Unspecified sinusitis (chronic) [facility] Diagnosis Sore throat- Primary Acute pharyngitis URI, acute Acute upper respiratory infections of unspecified site documented in this encounter [facility] note* Diagnosis URI, acute- Primary Acute upper respiratory infections of unspecified site Sore throat Acute pharyngitis Nausea Nausea alone documented in this encounter [facility] note* Diagnosis Acute non-recurrent sinusitis, unspecified location- Primary [facility] Exposure to SARS-associated coronavirus- Primary [facility] Diagnosis Right leg swelling- Primary Confusion Unspecified psychosis [facility] Attachments The following attachments cannot be sent through Care Everywhere. * Sinusitis Discharge Instructions, Adult (Serbian) [facility] [...] extremity venous duplex right Destiny Livingston MD [address] [place] [address] Referral ID Status Reason Start Date Expiration Date V isits Requested Visits Authorized [id number] Pending Review 09/18/2023 09/17/2024 1 1 Additional Source Comments (unrecognized sect ion and content) No Status Records FoundNo Status Records FoundNo Status Records FoundNo Status Records Found INFORMATION SOURCE (unrecogn ized section and content) DATE CREATED AUTHOR AUTHOR'S ORGANIZ ATION 01/07/2020 [facility] ([place]) DATE CREATED AUTHOR AUTHOR'S ORGANIZ ATION 09/21/2023 [facility] DATE CREATED AUTHOR AUTHOR'S ORGANIZ ATION 10/21/2023 [facility] Source Comments (unrecognize d section and content) In the event this informatio n is protected by the Federal Confidentiality of Alcohol and Drug Abuse Patient Records regulations: The Federal rules restrict any use of the information to criminally investigate or prosecute any alcohol or drug abuse patient.[facility] the event this information is protected by the Federal Confidentiality of Alcohol and Drug Abuse Patient Records regulations: The Federal rules restrict any use of the information to criminally investigate or prosecute any alcohol or drug abuse patient.[facility] the event this information is protected by the Federal Confidentiality of Alcohol and Drug Abuse Patient Records regulations: The Federal rules restrict any use of the information to criminally investigate or prosecute any alcohol or drug abuse patient.[facility] the event this information is protected by the Federal Confidentiality of Alcohol and Drug Abuse Patient Records regulations: The Federal rules restrict any use of the information to criminally investigate or prosecute any alcohol or drug abuse patient.[facility] the event this information is protected by the Federal Confidentiality of Alcohol and Drug Abuse Patient Records regulations: The Federal rules restrict any use of the information to criminally investigate or prosecute any alcohol or drug abuse patient.[facility] the event this information is protected by the Federal Confidentiality of Alcohol and Drug Abuse Patient Records regulations: The Federal rules restrict any use of the information to criminally investigate or prosecute any alcohol or drug abuse patient.[facility] the event this information is protected by the Federal Confidentiality of Alcohol and Drug Abuse Patient Records regulations: The Federal rules restrict any use of the information to criminally investigate or prosecute any alcohol or drug abuse patient.[facility] the event this information is protected by the Federal Confidentiality of Alcohol and Drug Abuse Patient Records regulations: The Federal rules restrict any use of the information to criminally investigate or prosecute any alcohol or drug abuse patient.[facility] the event this information is protected by the Federal Confidentiality of Alcohol and Drug Abuse Patient Records regulations: The Federal rules restrict any use of the information to criminally investigate or prosecute any alcohol or drug abuse patient.[facility] Reason for Visit (unrecogniz ed section [...] visit Procedures consult, test,treat Shavon Le PA-C [address] [place] [address] [facility] [place] [address] Referral ID Status Reason Start Date Expiration Date Visits Requested Visits Authorized [id number] Authorized Patient Cleared - Qualified 100% FAS 3 11/17/2023 99 99 Reason Comments Leg Swelling Pt states he's havin g bilateral leg swelling Numbness Pt states he started having new confusion and numbness that started around 4 Care Teams (unrecognized sec tion and content) Loan Officer Assistant Relationship Specialty Start Date End Date Shavon Le PA-C [address] [place], [place] [id number] PCP - General Family Practice 02/02/18 Loan Officer Assistant Relationship Specialty Start Date End Date Shavon Le PA-C [address] [place], [place] [id number] PCP - General Family Practice 02/02/18 Loan Officer Assistant Relationship Specialty Start Date End Date Shavon Le PA-C [address] [facility] [place] [address] PCP - General Family Medicine 02/02/18 Loan Officer Assistant Relationship Specialty Start Date End Date Shavon Le PA-C [address] [facility] [place] [address] PCP - General Family Medicine 02/02/18 Loan Officer Assistant Relationship Specialty Start Date End Date Shavon Le PA-C [address] [facility] [place] [address] PCP - General Family Medicine 02/02/18 Loan Officer Assistant Relationship Specialty Start Date End Date Shavon Le [address] [facility] [place] [address] PCP - General Physician Pipe Caulker 07/08/23 Loan Officer Assistant Relationship Specialty Start Date End Date Shavon Le PA-C [address] [facility] [place] [address] PCP - General Family Medicine 02/02/18 Loan Officer Assistant Relationship Specialty Start Date End Date Shavon Le [address] [facility] [place] [address] PCP - General Physician Pipe Caulker 07/08/23 Loan Officer Assistant Relationship Specialty Start Date End Date Shavon Le [address] [facility] [place] [address] PCP - General Physician Pipe Caulker 07/08/23 Scheduled Active and Recently Administ ered [...] BE BASED ON THE PRIMARY CLINICAL RECORDS. [employer] [facility]. provides no warranty or guarantee of the accuracy or completeness of information in this document.
[2023-11-07] MEDS: LORazepam 2 MG/ML Syringe IM (20:03)
== END 2023-11-07 20:22 | disposition home or self-care (01) ==
PROVIDERS: Emergency Provider Emergency Medicine; PCP Physician Assistant; Visit Provider Emergency Medicine
DX: G25.5 Other chorea (principal); F19.19 Other psychoactive substance abuse with unspecified psychoactive substance-induced disorder; J02.9 Acute pharyngitis, unspecified; F17.210 Nicotine dependence, cigarettes, uncomplicated; H92.03 Otalgia, bilateral
CPT/HCPCS: 96372; 99282

== ENCOUNTER 2024-04-17 02:33 | Emergency (ER) | payer MEDICAID, SELFPAY ==
[2024-04-17 02:34] VITALS: BP 141/90; PULSE 90; RESP 18; TEMP 36.7; O2SAT 97; BMI 31.1
--- NOTE | 2024-04-17 02:59 | RAD_ITS ---
EXAM: XR CHEST, 2 VIEWS CLINICAL INDICATION: ? Aspiration TECHNIQUE: Frontal and lateral views of the chest. COMPARISON: No relevant prior studies available. FINDINGS: LUNGS AND PLEURAL SPACES: Unremarkable. No consolidation or edema. No pneumothorax. No effusion. HEART: Unremarkable. Cardiac silhouette not enlarged. MEDIASTINUM: Central airways and mediastinal contour are unremarkable. BONES/JOINTS: Unremarkable. No acute fracture. SOFT TISSUES: Unremarkable. RAD/Chest PA and Lateral IMPRESSION: No radiographic evidence of acute cardiopulmonary disease. Electronically Signed: Zach Mares MD at 4:12 EDT ,
[2024-04-17] MEDS: 0.9% Normal Saline (1000mL) 1,000 ML 999 ML IV (03:11)
[2024-04-17 03:20] LABS: Absolute Lymphocyte Count 0.77 X10^3/uL (0.83-4.51); Absolute Neutrophil Count 3.3 X10^3/uL (2.0-7.7); Basophil# 0.03 X10^3/uL; Basophil% 0.6 % (0-1); Eosinophil# 0.02 X10^3/uL; Eosinophils% 0.4 % (0-5); Hemoglobin 13.3 g/dL (13.0-16.5); Lymphocyte # 0.77 X10^3/ul (0.83-4.51); Lymphocyte % 16.6 % (19-41); Mean Corpuscular Hgb 30.9 pg (27.0-32.0); Mean Corpuscular Volume 88.4 fL (80-94); Monocyte# 0.55 X10^3/uL; Monocyte% 11.8 % (0-10); NRBC Flagged by Analyzer 0 % (0-5); Neutrophil # 3.26 X10^3/uL (2.7-7.7); Neutrophil % 70.2 % (47-70); Platelet Count 195 K/mm3 (150-450); RBC Distribution Width CV 12.9 % (11.6-14.6); RBC Distribution Width SD 41.6 fl (35.1-43.9); White Blood Count 4.7 K/mm3 (4.4-11.0)
[2024-04-17 03:48] LABS: Anion Gap 7 (5-15); BUN 13 mg/dL (7-18); BUN/Creat Ratio 13.6 RATIO (10-20); Calcium,Total 8.6 mg/dL (8.5-10.1); Chloride 106 mmol/L (98-107); Creatinine, Serum 0.96 mg/dL (0.70-1.30); EST Glomerular Filtration Rate 95 mL/min (>60); Est Glom Filt Rate - Afr Amer 115 mL/min (>60); Estimated Creatinine Clearance 123.68 ml/min; Glucose 109 mg/dL (74-106); Magnesium 1.7 mg/dL (1.6-2.6); Potassium 3.3 mmol/L (3.5-5.1); Sodium Level 139 mmol/L (136-145)
--- NOTE | 2024-04-17 04:18 | EX.ED.DYSGE1 ---
HPI History of Present Illness Chief Complaint: Cold Sx Informant: patient Narrative Narrative: Patient is a 33-year-old male with past medical history of anxiety and depression as well as bipolar disorder. He states roughly 3 weeks ago he was started on Pristiq. He states the first few weeks on it he felt normal but recently he has developed dry mouth with fatigue and tremor. He states he has been trying to drink lots of water but feels that no matter how much he ingests he is still having a dry mouth. He is concerned that he may need IV fluids or have a potential infection and therefore comes in for evaluation. Of note he also reports that recently he felt he was choking on a piece of chicken and has concern he may have aspirated PFSH PFSH Medical History (Updated 04/17/24 @ 05:[address] Bryce Caldwell, DO) Depression Anxiety Manic behavior Bipolar disorder Home Medications ?Medication ?Instructions ?Recorded ?Last Taken ?Type desvenlafaxine succinate 25 mg 25 mg PO DAILY 04/17/24 Unknown History tablet,extended release 24 hr Allergy/AdvReac Type Severity Reaction Status Date / Time No Known Allergies Allergy Verified 11/07/23 02:37 Social History Smoking Status: Current every day smoker tobacco type: e-cigarettes ROS ROS ED Constitutional Constitutional ED: Reports other Details: Positive fatigue ; Denies chills or fever(s) Eyes Eyes: Denies change in vision ENT ENT ED: Reports sore throat and other Details: Positive dry mouth Cardiovascular Cardiovascular: Denies chest pain Respiratory/Chest Respiratory/Chest: Denies cough or dyspnea Gastrointestinal Gastrointestinal: Denies abdominal pain, diarrhea, nausea or vomiting Genitourinary Genitourinary ED: Denies dysuria Musculoskeletal Musculoskeletal: Reports myalgias Integumentary Denies rash Neurologic Neurologic: Reports headache(s) Psychiatric Psychiatric: Reports anxiety and depression; Denies suicidal ideation or suicidal thoughts Hematologic/Lymphatic Hematologic/Lymphatic: Denies easy bleeding or easy bruising EXAM Physical Exam Const Vital Signs: 04/17/24 02:34 04/17/24 02:41 04/17/24 04:23 Temperature 98.1 F 98.1 F Temperature Source Temporal Pulse Rate 90 67 Respiratory Rate 18 16 Respiratory Effort Normal Non-Labored Respiratory Pattern Normal Blood Pressure 141/90 H 110/65 Blood Pressure Mean 107 80 Pulse Ox 97 95 Oxygen Delivery Method Room Air MDM MDM MDM Narrative Medical decision making narrative: Patient presented to the ER hypertensive otherwise with stable vitals. Symptoms were nonspecific in nature and chart review reveals that side effects such as dry mouth headache tremors and fatigue can all be related to Pristiq. Physical exam did not reveal any obvious signs of infection and he does not have respiratory distress or hypoxia and there is no abnormality of breath sounds in the right lobe going against potential aspiration. However as electrolyte abnormality versus acute kidney injury versus aspiration could be causes of his symptoms I elected to perform basic laboratory studies and a chest x-ray. Labs revealed no clinically significant findings and chest x-ray revealed no signs of infiltrate. Patient was given IV hydration and following this he was advised he should stop his Pristiq after discussing this with his family doctor as this is the most likely cause for his symptoms. However at this time he has a negative workup and stable vitals and therefore he is otherwise safe for discharge History & Record Review Discussion w/independent historian: Patient Lab Data Attestation: I reviewed the patient's lab results. Labs: Laboratory Results - last 24 hr 04/17/24 03:10 WBC 4.7 RBC 4.30 L Hgb 13.3 Hct 38.0 L MCV 88.4 MCH 30.9 MCHC 35.0 RDW Std Deviation 41.6 RDW Coeff of Chay 12.9 Plt Count 195 MPV 9.0 Immature Gran % (Auto) 0.400 Neut % (Auto) 70.2 H Lymph % (Auto) 16.6 L [place] % (Auto) 11.8 H Eos % (Auto) 0.4 Baso % (Auto) 0.6 Absolute Neuts (auto) 3.3 Absolute Lymphs (auto) 0.77 L Nucleated RBC % 0 Sodium 139 Potassium 3.3 L Chloride 106 Carbon Dioxide 26.0 Anion Gap 7 BUN 13 Creatinine 0.96 Estim Creat Clear Calc 123.68 Est GFR (MDRD) Af Amer 115 Est GFR (MDRD) Non-Af 95 BUN/Creatinine Ratio 13.6 Glucose 109 H Calcium 8.6 Magnesium 1.7 Radiography Diagnostic Testing: Clinical Impression(s) from Imaging Studies Chest X-Ray 04/17/24 02:59 IMPRESSION: No radiographic evidence of acute cardiopulmonary disease. Electronically Signed: Zach Mares MD at 4:12 EDT , Chest x-ray as interpreted by the emergency medicine physician reveals no acute infiltrate pneumothorax or pleural effusion Discharge Plan Triage Chief Complaint: Cold Sx ED Provider: Bryce Caldwell Dx/Rx/DC Orders Clinical Impression: Adverse drug reaction, Bipolar disorder Instructions: ED Drug Reaction, Other Prescriptions: No Action desvenlafaxine succinate 25 mg tablet extended release 24 hr 25 mg PO DAILY Primary Care Provider: Shavon Le Referrals: Shavon Le, PA [Primary Care Provider] - Activity Restrictions/Additional Instructions: Your workup today revealed no clinically significant findings and your symptoms are consistent with side effects secondary to Pristiq. Talk to your family doctor about coming off this medication as I do feel it is the main cause of your symptoms and return to the ER should you have any further concerns. Print Language: Albanian Disposition Disposition: Home, Self Care Discharge Date/Time: 04/17/24 04:25
[2024-04-17 04:23] VITALS: BP 110/65; PULSE 67; RESP 16; TEMP 36.7; O2SAT 95
== END 2024-04-17 04:25 | disposition home or self-care (01) ==
PROVIDERS: Emergency Provider Emergency Medicine; PCP Physician Assistant; Visit Provider Emergency Medicine
DX: F31.9 Bipolar disorder, unspecified (principal); G25.1 Drug-induced tremor; F17.290 Nicotine dependence, other tobacco product, uncomplicated; F41.9 Anxiety disorder, unspecified; R68.2 Dry mouth, unspecified; R53.83 Other fatigue; Z79.899 Other long term (current) drug therapy; J02.9 Acute pharyngitis, unspecified; G44.40 Drug-induced headache, not elsewhere classified, not intractable; T43.215A Adverse effect of selective serotonin and norepinephrine reuptake inhibitors, initial encounter
CPT/HCPCS: 71046; 80048; 83735; 85025; 96360; 99283; J7030; A4216

== ENCOUNTER 2024-07-09 08:41 | Emergency (ER) | payer MEDICAID, SELFPAY ==
[2024-07-09 08:42] VITALS: BP 98/52; PULSE 82; RESP 17; TEMP 36.7; O2SAT 98; BMI 31.8
--- NOTE | 2024-07-09 08:57 | CT_ITS ---
STUDY: CT BRAIN WITHOUT CONTRAST REASON FOR EXAM: Male, 33 years old. Confusion RADIATION DOSAGE (If Supplied By Facility): CTDIvol = ( 44.99 ) mGy, DLP = ( 829.85 ) mGycm TECHNIQUE: Transaxial CT imaging of the brain was performed without administration of intravenous contrast material. Individualized dose optimization techniques were used for this CT. COMPARISON: December 28, 2018. FINDINGS: Normal soft tissue structures. Normal calvarium. Normal size ventricles and extra-axial spaces for the patient''s age. Normal white matter tracts of the cerebral hemispheres. Normal basal ganglia and thalami. Normal brainstem. Normal cerebellum. There is no intracranial hemorrhage. There are no findings of an acute ischemic infarction. Normal visualized paranasal sinuses. The nasal septum deviates to the right. CT/Brain/Head without Contrast IMPRESSION: Normal unenhanced CT scan of the brain. Electronically Signed: Lake Arango MD at 11:32 EDT ,
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
--- NOTE | 2024-07-09 09:19 | ED.RN ---
PATIENT AGITATED. REFUSING IV FLUIDS, URINE SAMPLE, AND SCANS. STATES I DONT NEED IT, IM GOOD. STATES HE DID NOT CONSENT TO ANYTHING MD AND CHARGE NURSE MADE AWARE. SECURITY AT BEDSIDE
[2024-07-09 09:20] LABS: Absolute Lymphocyte Count 2.19 X10^3/uL (0.83-4.51); Absolute Neutrophil Count 2.8 X10^3/uL (2.0-7.7); Basophil# 0.06 X10^3/uL; Eosinophil# 0.19 X10^3/uL; Eosinophils% 3.3 % (0-5); Hematocrit 43.2 % (40-54); Hemoglobin 14.6 g/dL (13.0-16.5); Lymphocyte # 2.19 X10^3/ul (0.83-4.51); Mean Corp Hgb Conc 33.8 g/dL (32-36); Mean Corpuscular Hgb 29.7 pg (27.0-32.0); Monocyte# 0.49 X10^3/uL; Monocyte% 8.5 % (0-10); NRBC Flagged by Analyzer 0 % (0-5); Neutrophil # 2.78 X10^3/uL (2.7-7.7); Neutrophil % 48.3 % (47-70); Platelet Count 346 K/mm3 (150-450); RBC Distribution Width SD 38.6 fl (35.1-43.9); Red Blood Count 4.91 M/mm3 (4.6-6.2); White Blood Count 5.8 K/mm3 (4.4-11.0)
[2024-07-09 09:31] LABS: ALB/GLOB Ratio 0.9 RATIO (0.9-2.4); AST(SGOT) 25 U/L (15-37); Alanine Aminotransfer ALT/SGPT 24 U/L (16-61); Albumin, Serum 3.4 g/dL (3.2-5.0); Alkaline Phosphatase 66 U/L (45-117); Anion Gap 8 (5-15); BUN 18 mg/dL (7-18); BUN/Creat Ratio 18.3 RATIO (10-20); Chloride 116 mmol/L (98-107); Creatinine, Serum 0.98 mg/dL (0.70-1.30); EST Glomerular Filtration Rate 92 mL/min (>60); Est Glom Filt Rate - Afr Amer 112 mL/min (>60); Estimated Creatinine Clearance 126.19 ml/min; Globulin 3.7 g/dL (2.2-4.2); Glucose 95 mg/dL (74-106); Potassium 3.3 mmol/L (3.5-5.1); Protein, Total 7.1 g/dL (6.4-8.2); Sodium Level 147 mmol/L (136-145); Total Bilirubin < 0.10 mg/dL (0.20-1.00)
--- NOTE | 2024-07-09 09:34 | ED.RN ---
MOM CALLED AND INFORMED OF PATIENTS CARE.
[2024-07-09 10:40] VITALS: BP 105/75; PULSE 91; RESP 19
--- NOTE | 2024-07-09 11:39 | ED.RN ---
's Dept bedside speaking to patient.
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
== END 2024-07-09 12:19 ==
PROVIDERS: Emergency Provider Surgery; PCP Physician Assistant; Visit Provider Surgery
DX: F10.129 Alcohol abuse with intoxication, unspecified (principal); E86.0 Dehydration; F17.290 Nicotine dependence, other tobacco product, uncomplicated
CPT/HCPCS: 70450; 80053; 82077; 85025; 93005; 99282; J7030; A4216